=== PATIENT | female | born 1950 | race Caucasian/White ===

== ENCOUNTER 2020-12-28 13:15 | Inpatient (IN) | payer BC, MEDICARE ==
[~2020-12-28] VITALS: Ht 162.6 cm; Wt 102.1 kg
[~2020-12-28 13:15] MED LIST: BIOTIN PO; CYMBALTA PO; DIOVAN HCT 1601 EACH PO; DIOVAN HCT 3201 EAC1 PO; IRON PO; LOVENOX40 MG/0.4 SC; LYRICA PO; MULTIVITAMINS1 EAC7 PO; NORCO 10-325 T1 EACH PO; NORCO 7.5-3251 EACH PO; OSCAL PO; VITAMIN B12 PO; VITAMIN D3 PO
[2020-12-28 13:58] LABS: BASOPHILS # (AUTO) 0.1 (0.0-0.1); BASOPHILS % 0.5 % (0.0-1.0); HEMATOCRIT 42.5 % (34.2-44.1); HEMOGLOBIN 13.7 g/dL (12.0-16.0); LYMPHOCYTES # (AUTO) 1.1 (1.0-3.2); LYMPHOCYTES % 10.7 % (18.0-39.1); MEAN CORPUSCULAR HEMOGLOBIN 26.7 pg (28-32); MEAN CORPUSCULAR HGB CONC 32.2 g/dL (31-35); MEAN CORPUSCULAR VOLUME 82.7 fL (81-99); MONOCYTES # (AUTO) 0.6 (0.2-0.8); NEUTROPHILS # (AUTO) 8.2 (2.1-6.9); NEUTROPHILS % 78.3 % (38.7-80.0); PLATELET COUNT 319 x10e3/uL (140-360); RED BLOOD COUNT 5.14 x10e6/uL (3.6-5.1); RED CELL DISTRIBUTION WIDTH 13.9 % (11.7-14.4)
[2020-12-28] MEDS ORDERED: REMDESIVIR 200MG 200 MG IV ONE (14:00)
[2020-12-28] MEDS: CEFTRIAXONE 1 GM in SODIUM CHLORIDE 0.9% 50ML 50 ML IV SCH (14:08)
[2020-12-28] MEDS: DEXAMETHASONE SOD PHOS 10 MG/1 ML VIAL IV SCH (14:08)
[2020-12-28 14:21] LABS: ALBUMIN 3.1 g/dL (3.5-5.0); ALBUMIN/GLOBULIN RATIO 0.7 (0.8-2.0); ANION GAP 22.2 mmol/L (8-16); CALCIUM 9.5 mg/dL (8.4-10.2); CREATININE, SERUM 2.03 mg/dL (0.57-1.11); POTASSIUM 3.2 mmol/L (3.5-5.1)
[2020-12-28] MEDS: REMDESIVIR 200MG 200 MG IV ONE ×2 (16:00→19:17)
[2020-12-28] MEDS ORDERED: LACTATED RINGER'S 1,000 ML INJ ONE (16:00)
[2020-12-28] MEDS: ASCORBIC ACID 500 MG TAB PO SCH (16:39)
[2020-12-28] MEDS ORDERED: SODIUM CHLORIDE 0.9% 100 ML ONE ×2 (18:44→18:50)
[2020-12-28] MEDS: ENOXAPARIN 30 MG/0.3 ML SYR SC SCH (19:22)
[2020-12-28] MEDS ORDERED: ZOLPIDEM TARTRATE 5 MG TAB PO PRN (21:00)
[2020-12-28 21:46] LABS: CREATINE KINASE MB 1.1 ng/mL (0-5.0)
[2020-12-29 06:03] LABS: BASOPHILS % 0.2 % (0.0-1.0); HEMATOCRIT 35.9 % (34.2-44.1); HEMOGLOBIN 11.5 g/dL (12.0-16.0); LYMPHOCYTES # (AUTO) 0.7 (1.0-3.2); LYMPHOCYTES % 11.7 % (18.0-39.1); MEAN CORPUSCULAR HEMOGLOBIN 26.6 pg (28-32); MEAN CORPUSCULAR VOLUME 83.1 fL (81-99); MONOCYTES # (AUTO) 0.4 (0.2-0.8); MONOCYTES % 6.5 % (4.4-11.3); NEUTROPHILS # (AUTO) 4.6 (2.1-6.9); NEUTROPHILS % 78.5 % (38.7-80.0); PLATELET COUNT 243 x10e3/uL (140-360); RED BLOOD COUNT 4.32 x10e6/uL (3.6-5.1); RED CELL DISTRIBUTION WIDTH 13.7 % (11.7-14.4)
[2020-12-29 06:26] LABS: CREATINE KINASE MB 1.7 ng/mL (0-5.0)
[2020-12-29 06:51] LABS: ALBUMIN 2.5 g/dL (3.5-5.0); ALBUMIN/GLOBULIN RATIO 0.6 (0.8-2.0); ANION GAP 18.9 mmol/L (8-16); CREATININE, SERUM 2.17 mg/dL (0.57-1.11); POTASSIUM 3.9 mmol/L (3.5-5.1)
[2020-12-29 08:16] LABS: BAND NEUTROPHILS % (MANUAL) 3 %; LYMPHOCYTES % (MANUAL) 9 % (19-48); MONOCYTES % (MANUAL) 3 % (3.4-9.0); NEUTROPHILS % (MANUAL) 85 % (40-74)
[2020-12-29] MEDS: ZINC SULFATE 220 MG CAP PO SCH (09:00)
[2020-12-29] MEDS ORDERED: LACTATED RINGER'S 1,000 ML INJ ONE (13:00)
[2020-12-29 13:10] LABS: HEMATOCRIT 38.7 % (34.2-44.1); HEMOGLOBIN 12.7 g/dL (12.0-16.0)
[2020-12-29 13:22] LABS: INR 0.99; PARTIAL THROMBOPLASTIN TIME 25.8 seconds (23.8-35.5); PROTHROMBIN TIME 13.3 seconds (11.9-14.5)
[2020-12-29] MEDS ORDERED: REMDESIVIR 100MG 100 MG IV SCH (14:00)
[2020-12-29] MEDS: ASCORBIC ACID 500 MG TAB PO SCH ×2 (17:00→18:29)
[2020-12-29] MEDS ORDERED: LACTATED RINGER'S 1,000 ML ONE (18:22)
[2020-12-29] MEDS: DEXAMETHASONE SOD PHOS 10 MG/1 ML VIAL IV SCH (18:28)
[2020-12-29] MEDS: CEFTRIAXONE 1 GM in SODIUM CHLORIDE 0.9% 50ML 50 ML IV SCH (18:29)
[2020-12-29 22:38] LABS: BACTERIA,URINE MANY /HPF; CLARITY,URINE CLEAR (CLEAR); COLOR,URINE YELLOW (YELLOW); EPITHELIAL CELLS,URINE FEW /LPF; KETONES,URINE NEGATIVE (NEGATIVE); LEUKOCYTE ESTERASE ,URINE NEGATIVE (NEGATIVE); NITRITE,URINE NEGATIVE (NEGATIVE); PROTEIN,URINE DIPSTICK NEGATIVE (NEGATIVE); TRANSITIONAL EPI CELLS,URINE FEW; URINE UROBILINOGEN 0.2 mg/dL (0.2 - 1)
[2020-12-30 07:12] LABS: ANION GAP 18.7 mmol/L (8-16); CALCIUM 9.6 mg/dL (8.4-10.2); CREATININE, SERUM 1.02 mg/dL (0.57-1.11); POTASSIUM 3.7 mmol/L (3.5-5.1)
[2020-12-30] MEDS ORDERED: REMDESIVIR 100MG 100 MG IV SCH (08:00)
[2020-12-30] MEDS: CEFTRIAXONE 1 GM in SODIUM CHLORIDE 0.9% 50ML 50 ML IV SCH (08:40)
[2020-12-30] MEDS: DEXAMETHASONE SOD PHOS 10 MG/1 ML VIAL IV SCH (08:41)
[2020-12-30] MEDS: ASCORBIC ACID 500 MG TAB PO SCH ×2 (08:50→15:43)
[2020-12-30] MEDS: CHOLECALCIFEROL 1,000 UNIT TAB PO SCH (08:50)
[2020-12-30] MEDS: ZINC SULFATE 220 MG CAP PO SCH (08:51)
[2020-12-30] MEDS: ONDANSETRON HCL INJ 2MG/ML 2ML 2 MG/ML VIAL IV PRN (09:34)
[2020-12-30] MEDS: BARICITINIB 2 MG TABLET PO SCH (15:43)
[2020-12-31 08:06] LABS: BASOPHILS % 0.3 % (0.0-1.0); HEMOGLOBIN 12.8 g/dL (12.0-16.0); LYMPHOCYTES # (AUTO) 1.1 (1.0-3.2); LYMPHOCYTES % 8.7 % (18.0-39.1); MEAN CORPUSCULAR HEMOGLOBIN 26.6 pg (28-32); MEAN CORPUSCULAR VOLUME 83.2 fL (81-99); MONOCYTES # (AUTO) 0.7 (0.2-0.8); MONOCYTES % 5.4 % (4.4-11.3); NEUTROPHILS # (AUTO) 10.2 (2.1-6.9); NEUTROPHILS % 82.8 % (38.7-80.0); PLATELET COUNT 197 x10e3/uL (140-360); RED BLOOD COUNT 4.81 x10e6/uL (3.6-5.1); RED CELL DISTRIBUTION WIDTH 13.3 % (11.7-14.4)
[2020-12-31 08:44] LABS: ALBUMIN 3.2 g/dL (3.5-5.0); ANION GAP 15.4 mmol/L (8-16); CALCIUM 9.4 mg/dL (8.4-10.2); CREATININE, SERUM 0.98 mg/dL (0.57-1.11); POTASSIUM 3.4 mmol/L (3.5-5.1)
[2020-12-31] MEDS: BARICITINIB 2 MG TABLET PO SCH (09:36)
[2020-12-31] MEDS: DEXAMETHASONE SOD PHOS 10 MG/1 ML VIAL IV SCH (09:36)
[2020-12-31] MEDS: CEFTRIAXONE 1 GM in SODIUM CHLORIDE 0.9% 50ML 50 ML IV SCH (09:36)
[2020-12-31] MEDS: CHOLECALCIFEROL 1,000 UNIT TAB PO SCH (09:37)
[2020-12-31] MEDS: ZINC SULFATE 220 MG CAP PO SCH (09:37)
[2020-12-31] MEDS: ASCORBIC ACID 500 MG TAB PO SCH ×2 (09:37→16:56)
[2020-12-31] MEDS: REMDESIVIR 100MG 100 MG IV SCH (16:17)
[2020-12-31] MEDS: ENOXAPARIN 30 MG/0.3 ML SYR SC SCH (16:56)
[2021-01-01 08:36] LABS: BASOPHILS # (AUTO) 0.1 (0.0-0.1); BASOPHILS % 0.4 % (0.0-1.0); EOSINOPHILS % 0.1 % (0.0-6.0); HEMATOCRIT 39.2 % (34.2-44.1); HEMOGLOBIN 12.5 g/dL (12.0-16.0); LYMPHOCYTES # (AUTO) 1.2 (1.0-3.2); LYMPHOCYTES % 7.2 % (18.0-39.1); MEAN CORPUSCULAR HEMOGLOBIN 27.1 pg (28-32); MEAN CORPUSCULAR HGB CONC 31.9 g/dL (31-35); MONOCYTES # (AUTO) 0.7 (0.2-0.8); MONOCYTES % 4.2 % (4.4-11.3); NEUTROPHILS # (AUTO) 14.3 (2.1-6.9); NEUTROPHILS % 86.1 % (38.7-80.0); PLATELET COUNT 144 x10e3/uL (140-360); RED BLOOD COUNT 4.61 x10e6/uL (3.6-5.1); RED CELL DISTRIBUTION WIDTH 13.6 % (11.7-14.4)
[2021-01-01 09:06] LABS: ALBUMIN 3.1 g/dL (3.5-5.0); ALBUMIN/GLOBULIN RATIO 1.1 (0.8-2.0); ANION GAP 14.9 mmol/L (8-16); CALCIUM 9.1 mg/dL (8.4-10.2); CREATININE, SERUM 0.96 mg/dL (0.57-1.11); POTASSIUM 3.9 mmol/L (3.5-5.1)
[2021-01-01] MEDS: BARICITINIB 2 MG TABLET PO SCH (09:14)
[2021-01-01] MEDS: ZINC SULFATE 220 MG CAP PO SCH (09:14)
[2021-01-01] MEDS: ONDANSETRON HCL INJ 2MG/ML 2ML 2 MG/ML VIAL IV PRN (09:14)
[2021-01-01] MEDS: DEXAMETHASONE SOD PHOS 10 MG/1 ML VIAL IV SCH (09:14)
[2021-01-01] MEDS: ASCORBIC ACID 500 MG TAB PO SCH ×2 (09:14→17:51)
[2021-01-01] MEDS: CEFTRIAXONE 1 GM in SODIUM CHLORIDE 0.9% 50ML 50 ML IV SCH (09:14)
[2021-01-01] MEDS: CHOLECALCIFEROL 1,000 UNIT TAB PO SCH (09:14)
[2021-01-01] MEDS: REMDESIVIR 100MG 100 MG IV SCH ×2 (15:10→15:14)
[2021-01-01] MEDS ORDERED: ENOXAPARIN SOD INJ 40 MG/0.4 ML SYR SC SCH (17:00)
[2021-01-01] MEDS: ENOXAPARIN SOD INJ 40 MG/0.4 ML SYR SC SCH (17:51)
[2021-01-02] MEDS: ENOXAPARIN SOD INJ 40 MG/0.4 ML SYR SC SCH ×2 (07:26→17:21)
[2021-01-02 08:35] LABS: BASOPHILS % 0.2 % (0.0-1.0); HEMATOCRIT 40.2 % (34.2-44.1); HEMOGLOBIN 12.8 g/dL (12.0-16.0); LYMPHOCYTES % 4.8 % (18.0-39.1); MEAN CORPUSCULAR HEMOGLOBIN 26.8 pg (28-32); MEAN CORPUSCULAR HGB CONC 31.8 g/dL (31-35); MEAN CORPUSCULAR VOLUME 84.1 fL (81-99); MONOCYTES # (AUTO) 0.7 (0.2-0.8); MONOCYTES % 3.6 % (4.4-11.3); NEUTROPHILS # (AUTO) 18.2 (2.1-6.9); NEUTROPHILS % 88.8 % (38.7-80.0); PLATELET COUNT 131 x10e3/uL (140-360); RED BLOOD COUNT 4.78 x10e6/uL (3.6-5.1); RED CELL DISTRIBUTION WIDTH 13.5 % (11.7-14.4)
[2021-01-02] MEDS: CEFTRIAXONE 1 GM in SODIUM CHLORIDE 0.9% 50ML 50 ML IV SCH (09:03)
[2021-01-02] MEDS: BARICITINIB 2 MG TABLET PO SCH (09:03)
[2021-01-02] MEDS: ZINC SULFATE 220 MG CAP PO SCH (09:03)
[2021-01-02] MEDS: ASCORBIC ACID 500 MG TAB PO SCH ×2 (09:03→17:21)
[2021-01-02] MEDS: DEXAMETHASONE SOD PHOS 10 MG/1 ML VIAL IV SCH (09:03)
[2021-01-02] MEDS: CHOLECALCIFEROL 1,000 UNIT TAB PO SCH (09:04)
[2021-01-02 09:12] LABS: ALBUMIN 3.1 g/dL (3.5-5.0); ALBUMIN/GLOBULIN RATIO 0.9 (0.8-2.0); ANION GAP 14.7 mmol/L (8-16); CALCIUM 9.3 mg/dL (8.4-10.2); CREATININE, SERUM 0.86 mg/dL (0.57-1.11); POTASSIUM 3.7 mmol/L (3.5-5.1)
[2021-01-02] MEDS: REMDESIVIR 100MG 100 MG IV SCH (14:05)
[2021-01-02] MEDS ORDERED: ALBUTEROL SULF 0.083% NEB SOLN 3 ML NEB NEB PRN (17:00)
[2021-01-02 18:30] VITALS: BP 128/75
[2021-01-02 18:38] VITALS: BP 128/75
[2021-01-02] MEDS ORDERED: ALBUTEROL SULFATE HFA 8GM INHALATION AEROSOL INH PRN (19:45)
[2021-01-02 21:13] VITALS: BP 141/86
[2021-01-02 21:16] VITALS: BP 141/86
[2021-01-02 22:08] VITALS: BP 142/89
[2021-01-02 23:30] VITALS: BP 147/93
[2021-01-03] VITALS (12 sets, daily range): BP systolic 118–147; BP diastolic 67–84
[2021-01-03 05:21] LABS: BASOPHILS % 0.2 % (0.0-1.0); HEMATOCRIT 35.7 % (34.2-44.1); HEMOGLOBIN 11.5 g/dL (12.0-16.0); LYMPHOCYTES # (AUTO) 0.8 (1.0-3.2); MEAN CORPUSCULAR HEMOGLOBIN 26.4 pg (28-32); MEAN CORPUSCULAR HGB CONC 32.2 g/dL (31-35); MEAN CORPUSCULAR VOLUME 82.1 fL (81-99); MONOCYTES # (AUTO) 0.5 (0.2-0.8); MONOCYTES % 2.4 % (4.4-11.3); NEUTROPHILS # (AUTO) 17.3 (2.1-6.9); NEUTROPHILS % 90.5 % (38.7-80.0); PLATELET COUNT 146 x10e3/uL (140-360); RED BLOOD COUNT 4.35 x10e6/uL (3.6-5.1); RED CELL DISTRIBUTION WIDTH 13.2 % (11.7-14.4)
[2021-01-03 05:46] LABS: ALBUMIN 2.8 g/dL (3.5-5.0); ALBUMIN/GLOBULIN RATIO 0.9 (0.8-2.0); ANION GAP 16.8 mmol/L (8-16); CREATININE, SERUM 0.82 mg/dL (0.57-1.11); POTASSIUM 3.8 mmol/L (3.5-5.1)
[2021-01-03] MEDS: ENOXAPARIN SOD INJ 40 MG/0.4 ML SYR SC SCH ×2 (06:24→17:59)
[2021-01-03] MEDS: BARICITINIB 2 MG TABLET PO SCH (09:35)
[2021-01-03] MEDS: DEXAMETHASONE SOD PHOS 10 MG/1 ML VIAL IV SCH (09:35)
[2021-01-03] MEDS: CEFTRIAXONE 1 GM in SODIUM CHLORIDE 0.9% 50ML 50 ML IV SCH (09:35)
[2021-01-03] MEDS: ASCORBIC ACID 500 MG TAB PO SCH ×2 (09:45→17:59)
[2021-01-03] MEDS: ZINC SULFATE 220 MG CAP PO SCH (09:45)
[2021-01-03] MEDS: CHOLECALCIFEROL 1,000 UNIT TAB PO SCH (09:45)
[2021-01-04] VITALS (8 sets, daily range): BP systolic 127–146; BP diastolic 72–89
[2021-01-04] MEDS: ENOXAPARIN SOD INJ 40 MG/0.4 ML SYR SC SCH ×2 (06:16→17:18)
[2021-01-04 06:22] LABS: BASOPHILS % 0.1 % (0.0-1.0); HEMATOCRIT 36.3 % (34.2-44.1); HEMOGLOBIN 11.9 g/dL (12.0-16.0); LYMPHOCYTES # (AUTO) 0.7 (1.0-3.2); LYMPHOCYTES % 3.6 % (18.0-39.1); MEAN CORPUSCULAR HEMOGLOBIN 26.9 pg (28-32); MEAN CORPUSCULAR HGB CONC 32.8 g/dL (31-35); MEAN CORPUSCULAR VOLUME 81.9 fL (81-99); MONOCYTES # (AUTO) 0.6 (0.2-0.8); NEUTROPHILS % 89.7 % (38.7-80.0); PLATELET COUNT 174 x10e3/uL (140-360); RED BLOOD COUNT 4.43 x10e6/uL (3.6-5.1); RED CELL DISTRIBUTION WIDTH 13.2 % (11.7-14.4)
[2021-01-04 06:58] LABS: ALBUMIN 2.8 g/dL (3.5-5.0); ALBUMIN/GLOBULIN RATIO 0.9 (0.8-2.0); ANION GAP 13.9 mmol/L (8-16); CALCIUM 9.2 mg/dL (8.4-10.2); CREATININE, SERUM 0.82 mg/dL (0.57-1.11); POTASSIUM 3.9 mmol/L (3.5-5.1)
[2021-01-04] MEDS ORDERED: LACTATED RINGER'S 500 ML INJ ONE (09:30)
[2021-01-04] MEDS: CHOLECALCIFEROL 1,000 UNIT TAB PO SCH (09:39)
[2021-01-04] MEDS: ASCORBIC ACID 500 MG TAB PO SCH ×2 (09:39→17:18)
[2021-01-04] MEDS: ZINC SULFATE 220 MG CAP PO SCH (09:39)
[2021-01-04] MEDS: BARICITINIB 2 MG TABLET PO SCH (09:39)
[2021-01-04] MEDS: DEXAMETHASONE SOD PHOS 10 MG/1 ML VIAL IV SCH (11:37)
[2021-01-05] VITALS (9 sets, daily range): BP systolic 131–156; BP diastolic 57–88
[2021-01-05] MEDS: ENOXAPARIN SOD INJ 40 MG/0.4 ML SYR SC SCH ×2 (05:41→17:22)
[2021-01-05 05:55] LABS: BASOPHILS % 0.2 % (0.0-1.0); EOSINOPHILS % 0.1 % (0.0-6.0); HEMATOCRIT 36.1 % (34.2-44.1); HEMOGLOBIN 11.6 g/dL (12.0-16.0); LYMPHOCYTES # (AUTO) 0.7 (1.0-3.2); LYMPHOCYTES % 3.6 % (18.0-39.1); MEAN CORPUSCULAR HEMOGLOBIN 26.8 pg (28-32); MEAN CORPUSCULAR HGB CONC 32.1 g/dL (31-35); MEAN CORPUSCULAR VOLUME 83.4 fL (81-99); MONOCYTES # (AUTO) 0.6 (0.2-0.8); MONOCYTES % 3.3 % (4.4-11.3); NEUTROPHILS # (AUTO) 16.3 (2.1-6.9); NEUTROPHILS % 90.5 % (38.7-80.0); PLATELET COUNT 204 x10e3/uL (140-360); RED BLOOD COUNT 4.33 x10e6/uL (3.6-5.1); RED CELL DISTRIBUTION WIDTH 13.4 % (11.7-14.4)
[2021-01-05 06:17] LABS: ALBUMIN 2.7 g/dL (3.5-5.0); ALBUMIN/GLOBULIN RATIO 0.9 (0.8-2.0); ANION GAP 15.2 mmol/L (8-16); CREATININE, SERUM 0.77 mg/dL (0.57-1.11); POTASSIUM 4.2 mmol/L (3.5-5.1)
[2021-01-05] MEDS: CHOLECALCIFEROL 1,000 UNIT TAB PO SCH (08:23)
[2021-01-05] MEDS: BARICITINIB 2 MG TABLET PO SCH (08:23)
[2021-01-05] MEDS: ASCORBIC ACID 500 MG TAB PO SCH ×2 (08:23→16:15)
[2021-01-05] MEDS: ZINC SULFATE 220 MG CAP PO SCH (08:23)
[2021-01-05] MEDS: DEXAMETHASONE SOD PHOS 10 MG/1 ML VIAL IV SCH (08:23)
[2021-01-05] MEDS: ACETAMINOPHEN 325 MG TAB PO PRN (17:27)
[2021-01-06] VITALS (8 sets, daily range): BP systolic 101–165; BP diastolic 80–100
[2021-01-06] MEDS: ENOXAPARIN SOD INJ 40 MG/0.4 ML SYR SC SCH ×2 (06:08→17:43)
[2021-01-06] MEDS: DEXAMETHASONE SOD PHOS 10 MG/1 ML VIAL IV SCH (09:14)
[2021-01-06] MEDS: ASCORBIC ACID 500 MG TAB PO SCH ×2 (09:14→17:00)
[2021-01-06] MEDS: BARICITINIB 2 MG TABLET PO SCH (09:14)
[2021-01-06] MEDS: CHOLECALCIFEROL 1,000 UNIT TAB PO SCH (09:14)
[2021-01-06] MEDS: ZINC SULFATE 220 MG CAP PO SCH (09:14)
[2021-01-06] MEDS ORDERED: DEXMEDETOMIDINE 400MCG/NS100ML 100 ML IV PRN (11:30)
[2021-01-06] MEDS ORDERED: HYDRALAZINE HCL 20 MG/ML VIAL IV PRN (11:30)
[2021-01-07] VITALS (7 sets, daily range): BP systolic 105–152; BP diastolic 63–85
[2021-01-07] MEDS ORDERED: ZOLPIDEM TARTRATE 5 MG TAB PO PRN (00:30)
[2021-01-07] MEDS: ENOXAPARIN SOD INJ 40 MG/0.4 ML SYR SC SCH ×2 (05:38→17:50)
[2021-01-07] MEDS: CHOLECALCIFEROL 1,000 UNIT TAB PO SCH (09:00)
[2021-01-07] MEDS: ASCORBIC ACID 500 MG TAB PO SCH ×2 (09:00→17:00)
[2021-01-07] MEDS: ZINC SULFATE 220 MG CAP PO SCH (09:00)
[2021-01-07] MEDS: BARICITINIB 2 MG TABLET PO SCH (09:00)
[2021-01-07] MEDS ORDERED: WATER STERILE 10 ML VIAL ONE (12:12)
[2021-01-07] MEDS ORDERED: SUCCINYLCHOLINE CHLORIDE 20 MG/ML 10ML VIAL ONE (12:12)
[2021-01-07] MEDS ORDERED: VECURONIUM BROMIDE FOR INJ 20 MG VIAL ONE (12:12)
[2021-01-07] MEDS ORDERED: MIDAZOLAM HCL 2 MG/2 ML VIAL ONE (12:12)
[2021-01-07] MEDS ORDERED: ETOMIDATE 2 MG/ML 10 ML INJ IV ONE (12:12)
[2021-01-07 17:07] LABS: EOSINOPHILS # (AUTO) 0.1 (0.0-0.4); EOSINOPHILS % 0.4 % (0.0-6.0); HEMATOCRIT 43.6 % (34.2-44.1); HEMOGLOBIN 13.9 g/dL (12.0-16.0); LYMPHOCYTES # (AUTO) 1.1 (1.0-3.2); LYMPHOCYTES % 3.6 % (18.0-39.1); MEAN CORPUSCULAR HEMOGLOBIN 26.9 pg (28-32); MEAN CORPUSCULAR HGB CONC 31.9 g/dL (31-35); MEAN CORPUSCULAR VOLUME 84.5 fL (81-99); MONOCYTES # (AUTO) 1.5 (0.2-0.8); MONOCYTES % 4.9 % (4.4-11.3); NEUTROPHILS # (AUTO) 28.2 (2.1-6.9); NEUTROPHILS % 89.4 % (38.7-80.0); PLATELET COUNT 269 x10e3/uL (140-360); RED BLOOD COUNT 5.16 x10e6/uL (3.6-5.1); RED CELL DISTRIBUTION WIDTH 13.7 % (11.7-14.4)
[2021-01-07] MEDS ORDERED: ROCURONIUM BROMIDE 1,250 MG in SODIUM CHLORIDE 0.9% 250ML 125 ML IV SCH (17:15)
[2021-01-07 17:26] LABS: ALBUMIN 3.2 g/dL (3.5-5.0); ALBUMIN/GLOBULIN RATIO 0.8 (0.8-2.0); ANION GAP 16.9 mmol/L (8-16); CALCIUM 9.4 mg/dL (8.4-10.2); CREATININE, SERUM 0.71 mg/dL (0.57-1.11); POTASSIUM 4.9 mmol/L (3.5-5.1)
[2021-01-07] MEDS: FENTANYL 2000MCG/NS 250 250 ML IV SCH (17:54)
[2021-01-07] MEDS: MIDAZOLAM HCL 5MG/ML 10ML VIAL 100 ML IV PRN (17:55)
[2021-01-07] MEDS: ROCURONIUM 1250MG/NS 250 250 ML IV SCH (17:55)
[2021-01-07] MEDS: Vancomycin IV 1 GM in SODIUM CHLORIDE 0.9% 250ML 250 ML IV SCH (19:00)
[2021-01-07] MEDS: NOREPINEPHRINE 8 MG/D5W 250 ML 250 ML IV SCH (20:37)
[2021-01-07 21:12] LABS: ABG HCO3 30 mmol/L (22-26); ABG PCO2 62 mmHg (35-45); ABG PH 7.29 (7.35-7.45); ABG PO2 173 mmHg (80-105)
[2021-01-07 21:13] LABS: ABG TCO2 32
[2021-01-07] MEDS: MEROPENEM 1 GM in SODIUM CHLORIDE 0.9% 100 ML IV SCH ×2 (23:23→23:25)
[2021-01-08] VITALS (23 sets, daily range): BP systolic 65–146; BP diastolic 26–90
[2021-01-08] MEDS: FENTANYL 2000MCG/NS 250 250 ML IV SCH ×3 (00:15→16:00)
[2021-01-08] MEDS: MEROPENEM 1 GM in SODIUM CHLORIDE 0.9% 100 ML IV SCH ×2 (05:30→14:16)
[2021-01-08] MEDS: ENOXAPARIN SOD INJ 40 MG/0.4 ML SYR SC SCH (05:38)
[2021-01-08] MEDS: Vancomycin IV 1 GM in SODIUM CHLORIDE 0.9% 250ML 250 ML IV SCH (05:47)
[2021-01-08 05:51] LABS: BASOPHILS # (AUTO) 0.1 (0.0-0.1); BASOPHILS % 0.3 % (0.0-1.0); EOSINOPHILS # (AUTO) 0.2 (0.0-0.4); EOSINOPHILS % 0.6 % (0.0-6.0); HEMATOCRIT 40.8 % (34.2-44.1); HEMOGLOBIN 12.7 g/dL (12.0-16.0); LYMPHOCYTES # (AUTO) 1.3 (1.0-3.2); LYMPHOCYTES % 3.1 % (18.0-39.1); MEAN CORPUSCULAR HEMOGLOBIN 26.9 pg (28-32); MEAN CORPUSCULAR HGB CONC 31.1 g/dL (31-35); MEAN CORPUSCULAR VOLUME 86.4 fL (81-99); MONOCYTES % 4.7 % (4.4-11.3); NEUTROPHILS % 88.1 % (38.7-80.0); PLATELET COUNT 396 x10e3/uL (140-360); RED BLOOD COUNT 4.72 x10e6/uL (3.6-5.1); RED CELL DISTRIBUTION WIDTH 13.9 % (11.7-14.4)
[2021-01-08 06:14] LABS: ALBUMIN 2.9 g/dL (3.5-5.0); ALBUMIN/GLOBULIN RATIO 0.8 (0.8-2.0); ANION GAP 19.2 mmol/L (8-16); CALCIUM 9.2 mg/dL (8.4-10.2); CREATININE, SERUM 1.73 mg/dL (0.57-1.11); POTASSIUM 5.2 mmol/L (3.5-5.1)
[2021-01-08] MEDS: ASCORBIC ACID 500 MG TAB PO SCH ×2 (09:37→16:51)
[2021-01-08] MEDS: BARICITINIB 2 MG TABLET PO SCH (09:37)
[2021-01-08] MEDS: ZINC SULFATE 220 MG CAP PO SCH (09:37)
[2021-01-08] MEDS: CHOLECALCIFEROL 1,000 UNIT TAB PO SCH (09:37)
[2021-01-08] MEDS: NOREPINEPHRINE 8 MG/D5W 250 ML 250 ML IV SCH ×2 (09:38→14:22)
[2021-01-08] MEDS: MIDAZOLAM HCL 5MG/ML 10ML VIAL 100 ML IV PRN ×3 (09:54→22:00)
[2021-01-08 10:17] LABS: ABG HCO3 22 mmol/L (22-26); ABG PCO2 43 mmHg (35-45); ABG PH 7.31 (7.35-7.45); ABG PO2 94 mmHg (80-105); ABG TCO2 23
[2021-01-08] MEDS ORDERED: SODIUM CHLORIDE 0.9% 1000ML 500 ML IV ONE (11:45)
[2021-01-08] MEDS: VANCOMYCIN 250MG/5ML ORAL SOLN PO SCH ×2 (12:59→17:03)
[2021-01-08 13:47] LABS: LYMPHOCYTES % (MANUAL) 5 % (19-48); MONOCYTES % (MANUAL) 3 % (3.4-9.0); NEUTROPHILS % (MANUAL) 92 % (40-74); PLATELET ESTIMATE SLIGHTLY INCREASED; PLATELET MORPHOLOGY COMMENT NORMAL; RBC MORPHOLOGY COMMENT NORMAL
[2021-01-08] MEDS: SODIUM CHLORIDE 0.9% 1000ML 1,000 ML IV SCH ×2 (15:29→23:00)
[2021-01-08] MEDS ORDERED: SOD POLYSTYRENE SULFONATE SUSP 15 GM/60 ML BTL PO ONE (15:35)
[2021-01-08] MEDS: ROCURONIUM 1250MG/NS 250 250 ML IV SCH ×2 (16:52→21:44)
[2021-01-08] MEDS ORDERED: FUROSEMIDE INJ 10 MG/ML 4 ML VIAL IV ONE (18:45)
[2021-01-09] VITALS (22 sets, daily range): BP systolic 100–151; BP diastolic 61–87
[2021-01-09] MEDS: MIDAZOLAM HCL 5MG/ML 10ML VIAL 100 ML IV PRN ×4 (03:00→17:57)
[2021-01-09] MEDS: FENTANYL 2000MCG/NS 250 250 ML IV SCH ×3 (04:22→17:57)
[2021-01-09] MEDS: VANCOMYCIN 250MG/5ML ORAL SOLN PO SCH ×4 (06:19→17:14)
[2021-01-09 06:49] LABS: BASOPHILS # (AUTO) 0.1 (0.0-0.1); BASOPHILS % 0.2 % (0.0-1.0); EOSINOPHILS # (AUTO) 0.4 (0.0-0.4); EOSINOPHILS % 1.9 % (0.0-6.0); HEMATOCRIT 32.1 % (34.2-44.1); HEMOGLOBIN 10.8 g/dL (12.0-16.0); LYMPHOCYTES # (AUTO) 1.6 (1.0-3.2); LYMPHOCYTES % 7.8 % (18.0-39.1); MEAN CORPUSCULAR HEMOGLOBIN 27.3 pg (28-32); MEAN CORPUSCULAR HGB CONC 33.6 g/dL (31-35); MEAN CORPUSCULAR VOLUME 81.1 fL (81-99); MONOCYTES % 4.6 % (4.4-11.3); NEUTROPHILS % 82.7 % (38.7-80.0); PLATELET COUNT 323 x10e3/uL (140-360); RED BLOOD COUNT 3.96 x10e6/uL (3.6-5.1); RED CELL DISTRIBUTION WIDTH 14.1 % (11.7-14.4)
[2021-01-09 07:30] LABS: ALBUMIN 1.8 g/dL (3.5-5.0); ALBUMIN/GLOBULIN RATIO 0.5 (0.8-2.0); ANION GAP 18.3 mmol/L (8-16); CALCIUM 8.8 mg/dL (8.4-10.2); CREATININE, SERUM 2.91 mg/dL (0.57-1.11); POTASSIUM 3.3 mmol/L (3.5-5.1)
[2021-01-09] MEDS: CHOLECALCIFEROL 1,000 UNIT TAB PO SCH (09:09)
[2021-01-09] MEDS: ASCORBIC ACID 500 MG TAB PO SCH ×2 (09:09→17:14)
[2021-01-09] MEDS: ZINC SULFATE 220 MG CAP PO SCH (09:09)
[2021-01-09] MEDS: BARICITINIB 2 MG TABLET PO SCH (09:09)
[2021-01-09] MEDS: ENOXAPARIN SOD INJ 40 MG/0.4 ML SYR SC SCH (09:09)
[2021-01-09] MEDS: ROCURONIUM 1250MG/NS 250 250 ML IV SCH (09:11)
[2021-01-09 09:18] LABS: ABG HCO3 21 mmol/L (22-26); ABG PCO2 29 mmHg (35-45); ABG PH 7.47 (7.35-7.45); ABG PO2 142 mmHg (80-105); ABG TCO2 22
[2021-01-09] MEDS: NOREPINEPHRINE 8 MG/D5W 250 ML 250 ML IV SCH (11:21)
[2021-01-09] MEDS ORDERED: KCL 20 MEQ PACKET/ ORAL SOLN NG ONE (11:30)
[2021-01-09] MEDS: MEROPENEM 1 GM in SODIUM CHLORIDE 0.9% 100 ML IV SCH (14:15)
[2021-01-09] MEDS: FUROSEMIDE INJ 100 MG in SODIUM CHLORIDE 0.9% 100 ML 90 ML IV SCH (17:14)
[2021-01-10] VITALS (24 sets, daily range): BP systolic 88–128; BP diastolic 49–80
[2021-01-10] MEDS: VANCOMYCIN 250MG/5ML ORAL SOLN PO SCH ×4 (00:35→17:10)
[2021-01-10 06:58] LABS: BASOPHILS % 0.3 % (0.0-1.0); EOSINOPHILS # (AUTO) 0.4 (0.0-0.4); EOSINOPHILS % 2.5 % (0.0-6.0); HEMATOCRIT 27.5 % (34.2-44.1); HEMOGLOBIN 9.2 g/dL (12.0-16.0); LYMPHOCYTES # (AUTO) 1.5 (1.0-3.2); LYMPHOCYTES % 9.9 % (18.0-39.1); MEAN CORPUSCULAR HEMOGLOBIN 27.3 pg (28-32); MEAN CORPUSCULAR HGB CONC 33.5 g/dL (31-35); MEAN CORPUSCULAR VOLUME 81.6 fL (81-99); MONOCYTES # (AUTO) 0.7 (0.2-0.8); MONOCYTES % 4.6 % (4.4-11.3); NEUTROPHILS # (AUTO) 11.8 (2.1-6.9); NEUTROPHILS % 80.2 % (38.7-80.0); PLATELET COUNT 285 x10e3/uL (140-360); RED BLOOD COUNT 3.37 x10e6/uL (3.6-5.1); RED CELL DISTRIBUTION WIDTH 14.7 % (11.7-14.4)
[2021-01-10 07:30] LABS: ALBUMIN 1.5 g/dL (3.5-5.0); ALBUMIN/GLOBULIN RATIO 0.5 (0.8-2.0); ANION GAP 13.1 mmol/L (8-16); CALCIUM 7.7 mg/dL (8.4-10.2); CREATININE, SERUM 3.11 mg/dL (0.57-1.11); POTASSIUM 3.1 mmol/L (3.5-5.1)
[2021-01-10] MEDS ORDERED: KCL 20 MEQ PACKET/ ORAL SOLN NG SCH (09:00)
[2021-01-10 09:10] LABS: ABG HCO3 24 mmol/L (22-26); ABG PCO2 40 mmHg (35-45); ABG PH 7.38 (7.35-7.45); ABG PO2 106 mmHg (80-105); ABG TCO2 25
[2021-01-10] MEDS ORDERED: ALBUMIN 25% 12.5GM 50ML 100 ML IV ONE ×2 (09:42→21:44)
[2021-01-10] MEDS: ASCORBIC ACID 500 MG TAB PO SCH ×2 (09:45→17:10)
[2021-01-10] MEDS: ALBUMIN 25% 25GM 100ML 0.25 GM/ML BTL IV SCH ×3 (09:45→22:06)
[2021-01-10] MEDS: CHOLECALCIFEROL 1,000 UNIT TAB PO SCH (09:45)
[2021-01-10] MEDS: ENOXAPARIN SOD INJ 40 MG/0.4 ML SYR SC SCH (09:45)
[2021-01-10] MEDS: ZINC SULFATE 220 MG CAP PO SCH (09:45)
[2021-01-10] MEDS: BARICITINIB 2 MG TABLET PO SCH (09:45)
[2021-01-10] MEDS: MIDAZOLAM HCL 5MG/ML 10ML VIAL 100 ML IV PRN ×2 (11:15→14:54)
[2021-01-10] MEDS: FUROSEMIDE INJ 100 MG in SODIUM CHLORIDE 0.9% 100 ML 90 ML IV SCH (13:48)
[2021-01-10] MEDS: MEROPENEM 1 GM in SODIUM CHLORIDE 0.9% 100 ML IV SCH (13:48)
[2021-01-10] MEDS: FENTANYL 2000MCG/NS 250 250 ML IV SCH (14:53)
[2021-01-10] MEDS ORDERED: MAGNESIUM SULFATE 2GM/50ML 50 ML IV ONE (16:45)
[2021-01-10] MEDS: NOREPINEPHRINE 8 MG/D5W 250 ML 250 ML IV SCH (18:46)
[2021-01-10 21:25] LABS: MAGNESIUM 2.5 MG/DL (1.3-2.1); PHOSPHORUS 2.8 MG/DL (2.3-4.7)
[2021-01-10 21:38] LABS: ALBUMIN 2.5 g/dL (3.5-5.0); ALBUMIN/GLOBULIN RATIO 0.9 (0.8-2.0); ANION GAP 15.2 mmol/L (8-16); CALCIUM 8.7 mg/dL (8.4-10.2); CREATININE, SERUM 3.56 mg/dL (0.57-1.11); POTASSIUM 3.2 mmol/L (3.5-5.1)
[2021-01-11] VITALS (28 sets, daily range): BP systolic 89–135; BP diastolic 42–80
[2021-01-11] MEDS: POTASSIUM CHLORIDE 20MEQ/100ML 100 ML IV SCH (00:18)
[2021-01-11] MEDS: VANCOMYCIN 250MG/5ML ORAL SOLN PO SCH ×4 (00:18→17:55)
[2021-01-11 06:35] LABS: BASOPHILS % 0.3 % (0.0-1.0); EOSINOPHILS # (AUTO) 0.3 (0.0-0.4); EOSINOPHILS % 2.7 % (0.0-6.0); HEMOGLOBIN 8.6 g/dL (12.0-16.0); LYMPHOCYTES # (AUTO) 2.1 (1.0-3.2); LYMPHOCYTES % 18.1 % (18.0-39.1); MEAN CORPUSCULAR HGB CONC 33.1 g/dL (31-35); MEAN CORPUSCULAR VOLUME 81.8 fL (81-99); MONOCYTES # (AUTO) 0.7 (0.2-0.8); NEUTROPHILS # (AUTO) 8.3 (2.1-6.9); NEUTROPHILS % 70.6 % (38.7-80.0); PLATELET COUNT 271 x10e3/uL (140-360); RED BLOOD COUNT 3.18 x10e6/uL (3.6-5.1)
[2021-01-11 07:46] LABS: ALBUMIN 2.7 g/dL (3.5-5.0); ANION GAP 16.8 mmol/L (8-16); CALCIUM 8.8 mg/dL (8.4-10.2); CREATININE, SERUM 3.68 mg/dL (0.57-1.11); POTASSIUM 3.8 mmol/L (3.5-5.1)
[2021-01-11] MEDS: CHOLECALCIFEROL 1,000 UNIT TAB PO SCH (08:42)
[2021-01-11] MEDS: KCL 20 MEQ PACKET/ ORAL SOLN NG SCH (08:42)
[2021-01-11] MEDS: FUROSEMIDE INJ 100 MG in SODIUM CHLORIDE 0.9% 100 ML 90 ML IV SCH (08:42)
[2021-01-11] MEDS: ZINC SULFATE 220 MG CAP PO SCH (08:42)
[2021-01-11] MEDS: ASCORBIC ACID 500 MG TAB PO SCH ×2 (08:42→17:55)
[2021-01-11] MEDS: BARICITINIB 2 MG TABLET PO SCH (08:42)
[2021-01-11] MEDS: ENOXAPARIN SOD INJ 40 MG/0.4 ML SYR SC SCH (08:42)
[2021-01-11] MEDS: MIDAZOLAM HCL 5MG/ML 10ML VIAL 100 ML IV PRN ×4 (08:43→23:42)
[2021-01-11] MEDS ORDERED: POTASSIUM CHLORIDE 20 MEQ TAB CR PO SCH (09:00)
[2021-01-11] MEDS ORDERED: HEPARIN 25,000 UNIT 1,300 UNIT in DEXTROSE 5% 250ML 250 ML IV SCH ×2 (09:00→11:30)
[2021-01-11 09:46] LABS: ABG PCO2 40 mmHg (35-45); ABG PH 7.41 (7.35-7.45)
[2021-01-11 09:47] LABS: ABG PO2 65 mmHg (80-105)
[2021-01-11 09:48] LABS: ABG HCO3 25 mmol/L (22-26); ABG TCO2 27
[2021-01-11] MEDS: ALBUMIN 25% 25GM 100ML 0.25 GM/ML BTL IV SCH ×3 (10:10→22:02)
[2021-01-11] MEDS: FENTANYL 2000MCG/NS 250 250 ML IV SCH ×3 (13:09→20:12)
[2021-01-11] MEDS: MEROPENEM 1 GM in SODIUM CHLORIDE 0.9% 100 ML IV SCH (14:50)
[2021-01-11] MEDS: NOREPINEPHRINE 8 MG/D5W 250 ML 250 ML IV SCH (17:55)
[2021-01-11] MEDS: ACETAMINOPHEN 325 MG TAB PO PRN (20:03)
[2021-01-11] MEDS: HEPARIN 25,000 UNIT 1,300 UNIT in DEXTROSE 5% 250ML 250 ML IV SCH (22:02)
[2021-01-12] VITALS (40 sets, daily range): BP systolic 100–134; BP diastolic 44–79
[2021-01-12] MEDS: VANCOMYCIN 250MG/5ML ORAL SOLN PO SCH ×5 (00:05→23:58)
[2021-01-12] MEDS: FENTANYL 2000MCG/NS 250 250 ML IV SCH ×3 (03:17→14:46)
[2021-01-12 03:41] LABS: BASOPHILS % 0.2 % (0.0-1.0); EOSINOPHILS # (AUTO) 0.3 (0.0-0.4); EOSINOPHILS % 2.5 % (0.0-6.0); HEMATOCRIT 25.3 % (34.2-44.1); LYMPHOCYTES # (AUTO) 2.7 (1.0-3.2); LYMPHOCYTES % 23.1 % (18.0-39.1); MEAN CORPUSCULAR HEMOGLOBIN 26.7 pg (28-32); MEAN CORPUSCULAR HGB CONC 31.6 g/dL (31-35); MEAN CORPUSCULAR VOLUME 84.3 fL (81-99); MONOCYTES # (AUTO) 0.9 (0.2-0.8); MONOCYTES % 7.9 % (4.4-11.3); NEUTROPHILS # (AUTO) 7.3 (2.1-6.9); NEUTROPHILS % 62.7 % (38.7-80.0); PLATELET COUNT 250 x10e3/uL (140-360)
[2021-01-12 03:57] LABS: ALBUMIN 3.7 g/dL (3.5-5.0); ALBUMIN/GLOBULIN RATIO 1.5 (0.8-2.0); ANION GAP 18.8 mmol/L (8-16); CALCIUM 10.2 mg/dL (8.4-10.2); CREATININE, SERUM 4.62 mg/dL (0.57-1.11); POTASSIUM 4.8 mmol/L (3.5-5.1)
[2021-01-12] MEDS: HEPARIN 25,000 UNIT 1,300 UNIT in DEXTROSE 5% 250ML 250 ML IV SCH ×2 (04:27→11:32)
[2021-01-12] MEDS: MIDAZOLAM HCL 5MG/ML 10ML VIAL 100 ML IV PRN ×4 (04:50→20:47)
[2021-01-12] MEDS ORDERED: ZINC SULFATE 50 MG CAP ONE (08:17)
[2021-01-12] MEDS: KCL 20 MEQ PACKET/ ORAL SOLN NG SCH (09:00)
[2021-01-12 09:13] LABS: ABG PH 7.33 (7.35-7.45)
[2021-01-12 09:14] LABS: ABG HCO3 27 mmol/L (22-26); ABG PCO2 52 mmHg (35-45); ABG PO2 85 mmHg (80-105); ABG TCO2 29
[2021-01-12] MEDS: BARICITINIB 2 MG TABLET PO SCH (09:56)
[2021-01-12] MEDS: ASCORBIC ACID 500 MG TAB PO SCH ×2 (09:56→17:30)
[2021-01-12] MEDS: CHOLECALCIFEROL 1,000 UNIT TAB PO SCH (09:56)
[2021-01-12] MEDS: ZINC SULFATE 220 MG CAP PO SCH (09:56)
[2021-01-12] MEDS: MEROPENEM 1 GM in SODIUM CHLORIDE 0.9% 100 ML IV SCH (14:46)
[2021-01-12] MEDS: NOREPINEPHRINE 8 MG/D5W 250 ML 250 ML IV SCH (18:07)
[2021-01-12] MEDS ORDERED: HEPARIN SOD (PORCINE) 1000 UNIT/ML SDV ONE (19:05)
[2021-01-12] MEDS ORDERED: MANNITOL 25% 12.5GM/50ML 50 ML ONE (19:59)
[2021-01-13] VITALS (25 sets, daily range): BP systolic 87–119; BP diastolic 45–69
[2021-01-13] MEDS: FENTANYL 2000MCG/NS 250 250 ML IV SCH ×3 (00:18→21:19)
[2021-01-13] MEDS: MIDAZOLAM HCL 5MG/ML 10ML VIAL 100 ML IV PRN ×3 (02:05→23:30)
[2021-01-13 05:57] LABS: BASOPHILS % 0.2 % (0.0-1.0); EOSINOPHILS # (AUTO) 0.4 (0.0-0.4); HEMOGLOBIN 8.2 g/dL (12.0-16.0); LYMPHOCYTES # (AUTO) 1.6 (1.0-3.2); LYMPHOCYTES % 12.7 % (18.0-39.1); MEAN CORPUSCULAR HEMOGLOBIN 27.2 pg (28-32); MEAN CORPUSCULAR HGB CONC 31.5 g/dL (31-35); MEAN CORPUSCULAR VOLUME 86.4 fL (81-99); MONOCYTES # (AUTO) 0.8 (0.2-0.8); MONOCYTES % 6.5 % (4.4-11.3); NEUTROPHILS # (AUTO) 9.2 (2.1-6.9); NEUTROPHILS % 74.8 % (38.7-80.0); PLATELET COUNT 216 x10e3/uL (140-360); RED BLOOD COUNT 3.01 x10e6/uL (3.6-5.1)
[2021-01-13] MEDS: VANCOMYCIN 250MG/5ML ORAL SOLN PO SCH ×4 (06:03→23:57)
[2021-01-13 06:36] LABS: ALBUMIN 3.3 g/dL (3.5-5.0); ALBUMIN/GLOBULIN RATIO 1.2 (0.8-2.0); ANION GAP 16.4 mmol/L (8-16); CALCIUM 10.1 mg/dL (8.4-10.2); CREATININE, SERUM 3.37 mg/dL (0.57-1.11); POTASSIUM 4.4 mmol/L (3.5-5.1)
[2021-01-13 09:46] LABS: ABG HCO3 29 mmol/L (22-26); ABG PCO2 56 mmHg (35-45); ABG PH 7.32 (7.35-7.45); ABG PO2 104 mmHg (80-105); ABG TCO2 31
[2021-01-13] MEDS: KCL 20 MEQ PACKET/ ORAL SOLN NG SCH (10:47)
[2021-01-13] MEDS: ASCORBIC ACID 500 MG TAB PO SCH ×2 (10:48→18:18)
[2021-01-13] MEDS: ZINC SULFATE 220 MG CAP PO SCH (10:48)
[2021-01-13] MEDS: CHOLECALCIFEROL 1,000 UNIT TAB PO SCH (10:48)
[2021-01-13] MEDS: NOREPINEPHRINE 8 MG/D5W 250 ML 250 ML IV SCH (18:18)
[2021-01-13] MEDS ORDERED: HEPARIN SOD (PORCINE) 1000 UNIT/ML SDV ONE (18:41)
[2021-01-13] MEDS: HEPARIN 25,000 UNIT 1,300 UNIT in DEXTROSE 5% 250ML 250 ML IV SCH (21:45)
[2021-01-14] VITALS (32 sets, daily range): BP systolic 97–128; BP diastolic 48–86
[2021-01-14] MEDS: FENTANYL 2000MCG/NS 250 250 ML IV SCH ×3 (04:08→22:34)
[2021-01-14 04:35] LABS: BASOPHILS % 0.2 % (0.0-1.0); EOSINOPHILS # (AUTO) 0.5 (0.0-0.4); EOSINOPHILS % 3.1 % (0.0-6.0); HEMOGLOBIN 8.2 g/dL (12.0-16.0); LYMPHOCYTES % 6.1 % (18.0-39.1); MEAN CORPUSCULAR HEMOGLOBIN 27.3 pg (28-32); MEAN CORPUSCULAR HGB CONC 31.5 g/dL (31-35); MEAN CORPUSCULAR VOLUME 86.7 fL (81-99); MONOCYTES % 5.7 % (4.4-11.3); NEUTROPHILS # (AUTO) 13.7 (2.1-6.9); NEUTROPHILS % 80.5 % (38.7-80.0); PLATELET COUNT 179 x10e3/uL (140-360); RED CELL DISTRIBUTION WIDTH 15.9 % (11.7-14.4)
[2021-01-14] MEDS: MIDAZOLAM HCL 5MG/ML 10ML VIAL 100 ML IV PRN ×4 (04:38→19:25)
[2021-01-14 04:54] LABS: ALBUMIN 2.8 g/dL (3.5-5.0); ALBUMIN/GLOBULIN RATIO 0.9 (0.8-2.0); ANION GAP 13.1 mmol/L (8-16); CALCIUM 9.9 mg/dL (8.4-10.2); CREATININE, SERUM 2.19 mg/dL (0.57-1.11)
[2021-01-14 04:55] LABS: POTASSIUM 5.1 mmol/L (3.5-5.1)
[2021-01-14] MEDS: VANCOMYCIN 250MG/5ML ORAL SOLN PO SCH ×3 (05:32→18:43)
[2021-01-14 08:45] LABS: ABG PCO2 51 mmHg (35-45); ABG PH 7.35 (7.35-7.45); ABG PO2 83 mmHg (80-105)
[2021-01-14 08:46] LABS: ABG HCO3 29 mmol/L (22-26); ABG TCO2 30
[2021-01-14] MEDS: ZINC SULFATE 220 MG CAP PO SCH (09:47)
[2021-01-14] MEDS: CHOLECALCIFEROL 1,000 UNIT TAB PO SCH (09:47)
[2021-01-14] MEDS: KCL 20 MEQ PACKET/ ORAL SOLN NG SCH (09:47)
[2021-01-14] MEDS: ASCORBIC ACID 500 MG TAB PO SCH ×2 (09:47→18:42)
[2021-01-14] MEDS: NOREPINEPHRINE 8 MG/D5W 250 ML 250 ML IV SCH (18:00)
[2021-01-14] MEDS: ACETAMINOPHEN 325 MG TAB PO PRN (20:55)
[2021-01-14] MEDS: HEPARIN 25,000 UNIT 1,300 UNIT in DEXTROSE 5% 250ML 250 ML IV SCH (23:35)
[2021-01-14] MEDS ORDERED: HEPARIN SOD (PORCINE) 5,000 UNIT/ML VIAL ONE (23:56)
[2021-01-15] VITALS (27 sets, daily range): BP systolic 91–147; BP diastolic 46–83
[2021-01-15] MEDS: VANCOMYCIN 250MG/5ML ORAL SOLN PO SCH ×4 (00:10→18:17)
[2021-01-15] MEDS: MIDAZOLAM HCL 5MG/ML 10ML VIAL 100 ML IV PRN ×4 (00:26→19:16)
[2021-01-15] MEDS: FENTANYL 2000MCG/NS 250 250 ML IV SCH ×3 (06:03→19:15)
[2021-01-15 06:09] LABS: BASOPHILS # (AUTO) 0.1 (0.0-0.1); BASOPHILS % 0.6 % (0.0-1.0); EOSINOPHILS # (AUTO) 0.6 (0.0-0.4); EOSINOPHILS % 3.1 % (0.0-6.0); HEMATOCRIT 26.8 % (34.2-44.1); HEMOGLOBIN 8.2 g/dL (12.0-16.0); LYMPHOCYTES # (AUTO) 0.6 (1.0-3.2); LYMPHOCYTES % 3.4 % (18.0-39.1); MEAN CORPUSCULAR HEMOGLOBIN 27.2 pg (28-32); MEAN CORPUSCULAR HGB CONC 30.6 g/dL (31-35); MEAN CORPUSCULAR VOLUME 88.7 fL (81-99); MONOCYTES # (AUTO) 1.2 (0.2-0.8); MONOCYTES % 6.1 % (4.4-11.3); NEUTROPHILS # (AUTO) 15.2 (2.1-6.9); NEUTROPHILS % 80.4 % (38.7-80.0); PLATELET COUNT 188 x10e3/uL (140-360); RED BLOOD COUNT 3.02 x10e6/uL (3.6-5.1); RED CELL DISTRIBUTION WIDTH 15.7 % (11.7-14.4)
[2021-01-15 06:50] LABS: ALBUMIN 2.7 g/dL (3.5-5.0); ALBUMIN/GLOBULIN RATIO 0.7 (0.8-2.0); ANION GAP 13.5 mmol/L (8-16); CREATININE, SERUM 1.48 mg/dL (0.57-1.11); POTASSIUM 4.5 mmol/L (3.5-5.1)
[2021-01-15 07:55] LABS: ABG PCO2 53 mmHg (35-45); ABG PH 7.35 (7.35-7.45); ABG PO2 65 mmHg (80-105)
[2021-01-15 07:56] LABS: ABG HCO3 29 mmol/L (22-26); ABG TCO2 31
[2021-01-15] MEDS: HEPARIN 25,000 UNIT 1,300 UNIT in DEXTROSE 5% 250ML 250 ML IV SCH ×2 (08:22→23:49)
[2021-01-15] MEDS ORDERED: ZINC SULFATE 50 MG CAP ONE (08:50)
[2021-01-15] MEDS: CHOLECALCIFEROL 1,000 UNIT TAB PO SCH (09:00)
[2021-01-15] MEDS: KCL 20 MEQ PACKET/ ORAL SOLN NG SCH (09:00)
[2021-01-15] MEDS: ZINC SULFATE 50 MG CAP PO SCH (09:00)
[2021-01-15] MEDS: ASCORBIC ACID 500 MG TAB PO SCH ×2 (09:00→17:54)
[2021-01-15] MEDS: ACETAMINOPHEN 325 MG TAB PO PRN (13:43)
[2021-01-15] MEDS: NOREPINEPHRINE 8 MG/D5W 250 ML 250 ML IV SCH (18:24)
[2021-01-16] VITALS (27 sets, daily range): BP systolic 91–126; BP diastolic 46–58
[2021-01-16] MEDS: VANCOMYCIN 250MG/5ML ORAL SOLN PO SCH ×5 (00:04→23:15)
[2021-01-16] MEDS: MIDAZOLAM HCL 5MG/ML 10ML VIAL 100 ML IV PRN ×5 (02:16→22:15)
[2021-01-16] MEDS: FENTANYL 2000MCG/NS 250 250 ML IV SCH ×4 (03:09→23:23)
[2021-01-16 06:36] LABS: BASOPHILS # (AUTO) 0.1 (0.0-0.1); BASOPHILS % 0.3 % (0.0-1.0); EOSINOPHILS # (AUTO) 0.7 (0.0-0.4); EOSINOPHILS % 4.4 % (0.0-6.0); HEMATOCRIT 27.2 % (34.2-44.1); HEMOGLOBIN 8.4 g/dL (12.0-16.0); LYMPHOCYTES # (AUTO) 0.4 (1.0-3.2); LYMPHOCYTES % 2.7 % (18.0-39.1); MEAN CORPUSCULAR HEMOGLOBIN 27.3 pg (28-32); MEAN CORPUSCULAR HGB CONC 30.9 g/dL (31-35); MEAN CORPUSCULAR VOLUME 88.3 fL (81-99); MONOCYTES # (AUTO) 0.7 (0.2-0.8); MONOCYTES % 4.4 % (4.4-11.3); NEUTROPHILS # (AUTO) 13.1 (2.1-6.9); PLATELET COUNT 191 x10e3/uL (140-360); RED BLOOD COUNT 3.08 x10e6/uL (3.6-5.1); RED CELL DISTRIBUTION WIDTH 15.8 % (11.7-14.4)
[2021-01-16 07:10] LABS: ALBUMIN 2.5 g/dL (3.5-5.0); ALBUMIN/GLOBULIN RATIO 0.6 (0.8-2.0); CALCIUM 10.4 mg/dL (8.4-10.2); CREATININE, SERUM 2.12 mg/dL (0.57-1.11)
[2021-01-16 08:24] LABS: ABG HCO3 26 mmol/L (22-26); ABG PCO2 47 mmHg (35-45); ABG PH 7.35 (7.35-7.45); ABG PO2 56 mmHg (80-105); ABG TCO2 27
[2021-01-16] MEDS: KCL 20 MEQ PACKET/ ORAL SOLN NG SCH (09:00)
[2021-01-16] MEDS: ASCORBIC ACID 500 MG TAB PO SCH ×2 (09:36→17:41)
[2021-01-16] MEDS: ZINC SULFATE 50 MG CAP PO SCH (09:36)
[2021-01-16] MEDS: CHOLECALCIFEROL 1,000 UNIT TAB PO SCH (09:36)
[2021-01-16] MEDS: ROCURONIUM 1250MG/NS 250 250 ML IV SCH (10:06)
[2021-01-16] MEDS ORDERED: VECURONIUM BROMIDE FOR INJ 20 MG VIAL IV ONE (10:30)
[2021-01-16 11:43] LABS: ALBUMIN 2.5 g/dL (3.5-5.0); ALBUMIN/GLOBULIN RATIO 0.6 (0.8-2.0); ANION GAP 16.3 mmol/L (8-16); CALCIUM 10.4 mg/dL (8.4-10.2); CREATININE, SERUM 2.05 mg/dL (0.57-1.11)
[2021-01-16 11:51] LABS: COLOR,URINE YELLOW (YELLOW)
[2021-01-16 11:52] LABS: CLARITY,URINE CLOUDY (CLEAR); KETONES,URINE NEGATIVE (NEGATIVE); LEUKOCYTE ESTERASE ,URINE LARGE (NEGATIVE); NITRITE,URINE NEGATIVE (NEGATIVE); POTASSIUM 6.3 mmol/L (3.5-5.1); PROTEIN,URINE DIPSTICK 2+ (NEGATIVE); URINE UROBILINOGEN 0.2 mg/dL (0.2 - 1)
[2021-01-16 12:26] LABS: RBC,URINE >50 /HPF (0-5); WBC,URINE (MAN) >50 /HPF (0-5)
[2021-01-16 12:27] LABS: AMORPHOUS SEDIMENT,URINE MODERATE (FEW); BACTERIA,URINE MODERATE /HPF; EPITHELIAL CELLS,URINE FEW /LPF
[2021-01-16] MEDS ORDERED: SODIUM CHLORIDE 0.9% 1000ML 2,000 ML IV PRN (13:15)
[2021-01-16] MEDS ORDERED: SODIUM CHLORIDE 0.9% 250ML 500 ML IV PRN (13:15)
[2021-01-16] MEDS ORDERED: HEPARIN SOD (PORCINE) 1000 UNIT/ML SDV IV PRN (13:15)
[2021-01-16] MEDS ORDERED: ALBUMIN 25% 12.5GM 0.25 GM/ML BTL IV PRN (13:15)
[2021-01-16] MEDS: NOREPINEPHRINE 8 MG/D5W 250 ML 250 ML IV SCH (13:45)
[2021-01-16 14:08] LABS: BASOPHILS # (AUTO) 0.1 (0.0-0.1); BASOPHILS % 0.5 % (0.0-1.0); EOSINOPHILS # (AUTO) 0.5 (0.0-0.4); EOSINOPHILS % 3.1 % (0.0-6.0); HEMATOCRIT 27.2 % (34.2-44.1); HEMOGLOBIN 8.5 g/dL (12.0-16.0); LYMPHOCYTES # (AUTO) 0.3 (1.0-3.2); LYMPHOCYTES % 1.7 % (18.0-39.1); MEAN CORPUSCULAR HEMOGLOBIN 27.7 pg (28-32); MEAN CORPUSCULAR HGB CONC 31.3 g/dL (31-35); MEAN CORPUSCULAR VOLUME 88.6 fL (81-99); MONOCYTES # (AUTO) 0.8 (0.2-0.8); MONOCYTES % 4.8 % (4.4-11.3); NEUTROPHILS % 87.1 % (38.7-80.0); PLATELET COUNT 206 x10e3/uL (140-360); RED BLOOD COUNT 3.07 x10e6/uL (3.6-5.1); RED CELL DISTRIBUTION WIDTH 15.9 % (11.7-14.4)
[2021-01-16 17:34] LABS: BAND NEUTROPHILS % (MANUAL) 7 %; EOSINOPHILS % (MANUAL) 3 % (0-7); MONOCYTES % (MANUAL) 2 % (3.4-9.0); MYELOCYTES % (MANUAL) 1 % (0-0); NEUTROPHILS % (MANUAL) 87 % (40-74); NUCLEATED RED BLOOD CELLS 1
[2021-01-16 17:35] LABS: PLATELET ESTIMATE ADEQUATE; PLATELET MORPHOLOGY COMMENT NORMAL; POLYCHROMASIA SL
[2021-01-16] MEDS: HEPARIN 25,000 UNIT 1,300 UNIT in DEXTROSE 5% 250ML 250 ML IV SCH (21:31)
[2021-01-17] VITALS (26 sets, daily range): BP systolic 83–136; BP diastolic 46–57
[2021-01-17] MEDS: ACETAMINOPHEN 325 MG TAB PO PRN (03:59)
[2021-01-17] MEDS: VANCOMYCIN 250MG/5ML ORAL SOLN PO SCH ×3 (06:00→12:13)
[2021-01-17] MEDS: FENTANYL 2000MCG/NS 250 250 ML IV SCH ×3 (06:01→13:12)
[2021-01-17] MEDS: NOREPINEPHRINE 8 MG/D5W 250 ML 250 ML IV SCH (06:17)
[2021-01-17 08:42] LABS: ABG HCO3 28 mmol/L (22-26); ABG PCO2 64 mmHg (35-45); ABG PH 7.24 (7.35-7.45); ABG PO2 74 mmHg (80-105); ABG TCO2 29
[2021-01-17] MEDS: ZINC SULFATE 50 MG CAP PO SCH (08:52)
[2021-01-17] MEDS: ASCORBIC ACID 500 MG TAB PO SCH ×2 (08:53→17:28)
[2021-01-17] MEDS: ROCURONIUM 1250MG/NS 250 250 ML IV SCH (08:54)
[2021-01-17 10:20] LABS: BASOPHILS # (AUTO) 0.1 (0.0-0.1); BASOPHILS % 0.4 % (0.0-1.0); EOSINOPHILS # (AUTO) 0.4 (0.0-0.4); EOSINOPHILS % 1.7 % (0.0-6.0); HEMATOCRIT 26.3 % (34.2-44.1); LYMPHOCYTES # (AUTO) 0.5 (1.0-3.2); MEAN CORPUSCULAR HEMOGLOBIN 27.3 pg (28-32); MEAN CORPUSCULAR HGB CONC 30.4 g/dL (31-35); MEAN CORPUSCULAR VOLUME 89.8 fL (81-99); MONOCYTES # (AUTO) 1.3 (0.2-0.8); MONOCYTES % 5.7 % (4.4-11.3); NEUTROPHILS # (AUTO) 19.9 (2.1-6.9); NEUTROPHILS % 86.8 % (38.7-80.0); PLATELET COUNT 191 x10e3/uL (140-360); RED BLOOD COUNT 2.93 x10e6/uL (3.6-5.1); RED CELL DISTRIBUTION WIDTH 15.8 % (11.7-14.4)
[2021-01-17 10:24] LABS: ALBUMIN 1.8 g/dL (3.5-5.0); ALBUMIN/GLOBULIN RATIO 0.5 (0.8-2.0); ANION GAP 13.5 mmol/L (8-16); CREATININE, SERUM 1.64 mg/dL (0.57-1.11)
[2021-01-17 10:26] LABS: CALCIUM 8.4 mg/dL (8.4-10.2); POTASSIUM 4.5 mmol/L (3.5-5.1)
[2021-01-17 11:21] LABS: BAND NEUTROPHILS % (MANUAL) 8 %; LYMPHOCYTES % (MANUAL) 1 % (19-48); MONOCYTES % (MANUAL) 3 % (3.4-9.0); NEUTROPHILS % (MANUAL) 87 % (40-74); NUCLEATED RED BLOOD CELLS 1
[2021-01-17 11:22] LABS: PLATELET ESTIMATE ADEQUATE
[2021-01-17 11:23] LABS: PLATELET MORPHOLOGY COMMENT FEW GIANT; RBC MORPHOLOGY COMMENT NORMAL
[2021-01-17] MEDS: MIDAZOLAM HCL 5MG/ML 10ML VIAL 100 ML IV PRN ×2 (13:12→19:11)
[2021-01-17 13:55] LABS: ABG HCO3 28 mmol/L (22-26); ABG PCO2 65 mmHg (35-45); ABG PH 7.24 (7.35-7.45); ABG PO2 75 mmHg (80-105)
[2021-01-17 13:56] LABS: ABG TCO2 30
[2021-01-17] MEDS: HEPARIN 25,000 UNIT 1,300 UNIT in DEXTROSE 5% 250ML 250 ML IV SCH (18:23)
[2021-01-18] VITALS (25 sets, daily range): BP systolic 88–143; BP diastolic 47–83
[2021-01-18] MEDS: FENTANYL 2000MCG/NS 250 250 ML IV SCH ×4 (02:46→23:58)
[2021-01-18] MEDS: MIDAZOLAM HCL 5MG/ML 10ML VIAL 100 ML IV PRN ×5 (05:20→21:45)
[2021-01-18 05:30] LABS: HEMATOCRIT 25.1 % (34.2-44.1); HEMOGLOBIN 7.7 g/dL (12.0-16.0); MEAN CORPUSCULAR HGB CONC 30.7 g/dL (31-35); MEAN CORPUSCULAR VOLUME 88.1 fL (81-99); RED BLOOD COUNT 2.85 x10e6/uL (3.6-5.1); RED CELL DISTRIBUTION WIDTH 15.9 % (11.7-14.4)
[2021-01-18 05:31] LABS: BASOPHILS # (AUTO) 0.1 (0.0-0.1); BASOPHILS % 0.4 % (0.0-1.0); EOSINOPHILS # (AUTO) 0.1 (0.0-0.4); EOSINOPHILS % 0.5 % (0.0-6.0); LYMPHOCYTES # (AUTO) 0.6 (1.0-3.2); LYMPHOCYTES % 2.6 % (18.0-39.1); MONOCYTES # (AUTO) 1.1 (0.2-0.8); MONOCYTES % 4.7 % (4.4-11.3); NEUTROPHILS # (AUTO) 20.1 (2.1-6.9); NEUTROPHILS % 84.8 % (38.7-80.0); PLATELET COUNT 240 x10e3/uL (140-360)
[2021-01-18 06:02] LABS: ALBUMIN 1.9 g/dL (3.5-5.0); ALBUMIN/GLOBULIN RATIO 0.4 (0.8-2.0); ANION GAP 17.2 mmol/L (8-16); CALCIUM 10.2 mg/dL (8.4-10.2); CREATININE, SERUM 2.62 mg/dL (0.57-1.11); POTASSIUM 5.2 mmol/L (3.5-5.1)
[2021-01-18] MEDS: ZINC SULFATE 50 MG CAP PO SCH (08:16)
[2021-01-18] MEDS: ASCORBIC ACID 500 MG TAB PO SCH ×2 (08:16→17:30)
[2021-01-18 09:51] LABS: ABG HCO3 24 mmol/L (22-26); ABG PCO2 60 mmHg (35-45); ABG PH 7.21 (7.35-7.45); ABG PO2 79 mmHg (80-105); ABG TCO2 26
[2021-01-18] MEDS ORDERED: Vancomycin IV 1 GM in SODIUM CHLORIDE 0.9% 250ML 250 ML IV ONE (10:00)
[2021-01-18 11:48] LABS: ABG PH 7.24 (7.35-7.45)
[2021-01-18 11:49] LABS: ABG HCO3 34 mmol/L (22-26); ABG PCO2 78 mmHg (35-45); ABG PO2 65 mmHg (80-105); ABG TCO2 36
[2021-01-18] MEDS: MICAFUNGIN SODIUM 100 ML IV SCH (12:00)
[2021-01-18] MEDS: MEROPENEM 1 GM in SODIUM CHLORIDE 0.9% 100 ML IV SCH ×2 (17:21→20:52)
[2021-01-18] MEDS: HEPARIN 25,000 UNIT 1,300 UNIT in DEXTROSE 5% 250ML 250 ML IV SCH (17:28)
[2021-01-18] MEDS: ROCURONIUM 1250MG/NS 250 250 ML IV SCH (17:28)
[2021-01-18] MEDS: NOREPINEPHRINE 8 MG/D5W 250 ML 250 ML IV SCH ×2 (17:33→23:01)
[2021-01-18] MEDS: ACETAMINOPHEN 325 MG TAB PO PRN (20:11)
[2021-01-19] VITALS (26 sets, daily range): BP systolic 94–127; BP diastolic 49–66
[2021-01-19] MEDS: MIDAZOLAM HCL 5MG/ML 10ML VIAL 100 ML IV PRN ×5 (02:36→23:37)
[2021-01-19] MEDS: FENTANYL 2000MCG/NS 250 250 ML IV SCH ×3 (06:20→19:05)
[2021-01-19 06:56] LABS: BASOPHILS # (AUTO) 0.1 (0.0-0.1); BASOPHILS % 0.2 % (0.0-1.0); EOSINOPHILS # (AUTO) 0.4 (0.0-0.4); EOSINOPHILS % 1.3 % (0.0-6.0); HEMATOCRIT 25.1 % (34.2-44.1); HEMOGLOBIN 7.9 g/dL (12.0-16.0); LYMPHOCYTES # (AUTO) 1.4 (1.0-3.2); LYMPHOCYTES % 4.3 % (18.0-39.1); MEAN CORPUSCULAR HEMOGLOBIN 27.5 pg (28-32); MEAN CORPUSCULAR HGB CONC 31.5 g/dL (31-35); MEAN CORPUSCULAR VOLUME 87.5 fL (81-99); MONOCYTES # (AUTO) 1.8 (0.2-0.8); MONOCYTES % 5.5 % (4.4-11.3); NEUTROPHILS # (AUTO) 24.9 (2.1-6.9); NEUTROPHILS % 75.9 % (38.7-80.0); PLATELET COUNT 314 x10e3/uL (140-360); RED BLOOD COUNT 2.87 x10e6/uL (3.6-5.1)
[2021-01-19 07:45] LABS: ALBUMIN 1.8 g/dL (3.5-5.0); ALBUMIN/GLOBULIN RATIO 0.4 (0.8-2.0); ANION GAP 17.8 mmol/L (8-16); CALCIUM 10.2 mg/dL (8.4-10.2); POTASSIUM 3.8 mmol/L (3.5-5.1)
[2021-01-19] MEDS: ZINC SULFATE 50 MG CAP PO SCH (08:17)
[2021-01-19] MEDS: ASCORBIC ACID 500 MG TAB PO SCH ×2 (08:17→16:17)
[2021-01-19] MEDS: MEROPENEM 1 GM in SODIUM CHLORIDE 0.9% 100 ML IV SCH ×2 (08:17→20:31)
[2021-01-19] MEDS: ROCURONIUM 1250MG/NS 250 250 ML IV SCH (10:20)
[2021-01-19 10:21] LABS: ABG HCO3 27 mmol/L (22-26); ABG PCO2 62 mmHg (35-45); ABG PH 7.25 (7.35-7.45); ABG PO2 59 mmHg (80-105); ABG TCO2 29
[2021-01-19] MEDS: HEPARIN 25,000 UNIT 1,300 UNIT in DEXTROSE 5% 250ML 250 ML IV SCH (10:46)
[2021-01-19] MEDS: MICAFUNGIN SODIUM 100 ML IV SCH (10:48)
[2021-01-19] MEDS: NOREPINEPHRINE 8 MG/D5W 250 ML 250 ML IV SCH (14:49)
[2021-01-19] MEDS: ONDANSETRON HCL INJ 2MG/ML 2ML 2 MG/ML VIAL IV PRN (20:14)
[2021-01-20] VITALS (24 sets, daily range): BP systolic 89–124; BP diastolic 41–80
[2021-01-20] MEDS: HEPARIN 25,000 UNIT 1,300 UNIT in DEXTROSE 5% 250ML 250 ML IV SCH ×3 (00:09→20:16)
[2021-01-20] MEDS: NOREPINEPHRINE 8 MG/D5W 250 ML 250 ML IV SCH ×2 (01:44→21:30)
[2021-01-20] MEDS: FENTANYL 2000MCG/NS 250 250 ML IV SCH (03:23)
[2021-01-20] MEDS: MIDAZOLAM HCL 5MG/ML 10ML VIAL 100 ML IV PRN ×6 (04:11→23:59)
[2021-01-20] MEDS: ONDANSETRON HCL INJ 2MG/ML 2ML 2 MG/ML VIAL IV PRN ×2 (05:53→23:26)
[2021-01-20 06:06] LABS: BASOPHILS % 0.1 % (0.0-1.0); EOSINOPHILS # (AUTO) 0.7 (0.0-0.4); EOSINOPHILS % 1.9 % (0.0-6.0); HEMATOCRIT 23.8 % (34.2-44.1); HEMOGLOBIN 7.8 g/dL (12.0-16.0); LYMPHOCYTES # (AUTO) 1.5 (1.0-3.2); LYMPHOCYTES % 3.9 % (18.0-39.1); MEAN CORPUSCULAR HEMOGLOBIN 28.9 pg (28-32); MEAN CORPUSCULAR HGB CONC 32.8 g/dL (31-35); MEAN CORPUSCULAR VOLUME 88.1 fL (81-99); MONOCYTES # (AUTO) 2.2 (0.2-0.8); MONOCYTES % 5.9 % (4.4-11.3); NEUTROPHILS # (AUTO) 27.7 (2.1-6.9); NEUTROPHILS % 72.4 % (38.7-80.0); PLATELET COUNT 323 x10e3/uL (140-360)
[2021-01-20 06:19] LABS: ANION GAP 17.1 mmol/L (8-16); CALCIUM 10.7 mg/dL (8.4-10.2); CREATININE, SERUM 2.54 mg/dL (0.57-1.11); PHOSPHORUS 4.2 MG/DL (2.3-4.7); POTASSIUM 4.1 mmol/L (3.5-5.1)
[2021-01-20] MEDS: ZINC SULFATE 50 MG CAP PO SCH (08:09)
[2021-01-20] MEDS: ASCORBIC ACID 500 MG TAB PO SCH ×2 (08:09→16:19)
[2021-01-20] MEDS: MEROPENEM 1 GM in SODIUM CHLORIDE 0.9% 100 ML IV SCH (08:09)
[2021-01-20] MEDS: ROCURONIUM 1250MG/NS 250 250 ML IV SCH (08:38)
[2021-01-20 08:50] LABS: BAND NEUTROPHILS % (MANUAL) 4 %; EOSINOPHILS % (MANUAL) 2 % (0-7); LYMPHOCYTES % (MANUAL) 5 % (19-48); MONOCYTES % (MANUAL) 4 % (3.4-9.0); NEUTROPHILS % (MANUAL) 84 % (40-74); NUCLEATED RED BLOOD CELLS 4; PROMYELOCYTES % (MANUAL) 1 % (0-0)
[2021-01-20 08:51] LABS: PLATELET ESTIMATE ADEQUATE; PLATELET MORPHOLOGY COMMENT FEW GIANT; RBC MORPHOLOGY COMMENT NORMAL
[2021-01-20 09:48] LABS: ABG PCO2 59 mmHg (35-45); ABG PH 7.27 (7.35-7.45)
[2021-01-20 09:49] LABS: ABG HCO3 27 mmol/L (22-26); ABG PO2 96 mmHg (80-105); ABG TCO2 29
[2021-01-20] MEDS ORDERED: CITRATE OF MAGNESIA 300ML BOTTLE PO ONE (10:00)
[2021-01-20] MEDS: METOCLOPRAMIDE HCL 10 MG/2ML VIAL IV SCH ×2 (11:30→17:37)
[2021-01-20] MEDS: CEFEPIME 1 GM in SODIUM CHLORIDE 0.9% 50ML 50 ML IV SCH (12:26)
[2021-01-20] MEDS: FENTANYL 2000MCG/NS 250 250 ML IV PRN (23:59)
[2021-01-21] VITALS (25 sets, daily range): BP systolic 86–138; BP diastolic 40–63
[2021-01-21] MEDS: METOCLOPRAMIDE HCL 10 MG/2ML VIAL IV SCH ×3 (02:33→18:00)
[2021-01-21] MEDS: NOREPINEPHRINE 8 MG/D5W 250 ML 250 ML IV SCH (04:02)
[2021-01-21] MEDS: HEPARIN 25,000 UNIT 1,300 UNIT in DEXTROSE 5% 250ML 250 ML IV SCH ×2 (04:31→19:53)
[2021-01-21] MEDS: MIDAZOLAM HCL 5MG/ML 10ML VIAL 100 ML IV PRN ×4 (04:58→20:31)
[2021-01-21] MEDS ORDERED: HEPARIN 25,000 UNIT DRIP IV ONE ×2 (06:32)
[2021-01-21] MEDS: FENTANYL 2000MCG/NS 250 250 ML IV PRN ×3 (06:32→20:30)
[2021-01-21 06:50] LABS: BASOPHILS # (AUTO) 0.1 (0.0-0.1); BASOPHILS % 0.2 % (0.0-1.0); EOSINOPHILS # (AUTO) 1.9 (0.0-0.4); HEMATOCRIT 24.4 % (34.2-44.1); HEMOGLOBIN 7.7 g/dL (12.0-16.0); LYMPHOCYTES # (AUTO) 1.3 (1.0-3.2); LYMPHOCYTES % 2.7 % (18.0-39.1); MEAN CORPUSCULAR HEMOGLOBIN 27.3 pg (28-32); MEAN CORPUSCULAR HGB CONC 31.6 g/dL (31-35); MEAN CORPUSCULAR VOLUME 86.5 fL (81-99); MONOCYTES % 6.3 % (4.4-11.3); NEUTROPHILS # (AUTO) 28.6 (2.1-6.9); NEUTROPHILS % 61.2 % (38.7-80.0); PLATELET COUNT 267 x10e3/uL (140-360); RED BLOOD COUNT 2.82 x10e6/uL (3.6-5.1); RED CELL DISTRIBUTION WIDTH 16.5 % (11.7-14.4)
[2021-01-21 07:08] LABS: ALBUMIN 1.5 g/dL (3.5-5.0); ALBUMIN/GLOBULIN RATIO 0.3 (0.8-2.0); ANION GAP 17.8 mmol/L (8-16); CALCIUM 10.3 mg/dL (8.4-10.2); CREATININE, SERUM 2.62 mg/dL (0.57-1.11); POTASSIUM 3.8 mmol/L (3.5-5.1)
[2021-01-21] MEDS: ROCURONIUM 1250MG/NS 250 250 ML IV SCH (08:01)
[2021-01-21] MEDS: DOCUSATE SODIUM LIQD 100 MG/10 ML UDC NG SCH (08:02)
[2021-01-21] MEDS: ASCORBIC ACID 500 MG TAB PO SCH ×2 (08:02→17:00)
[2021-01-21] MEDS: ZINC SULFATE 50 MG CAP PO SCH (08:02)
[2021-01-21 09:49] LABS: ABG HCO3 24 mmol/L (22-26); ABG PCO2 56 mmHg (35-45); ABG PH 7.24 (7.35-7.45); ABG PO2 78 mmHg (80-105); ABG TCO2 26
[2021-01-21 12:34] LABS: BAND NEUTROPHILS % (MANUAL) 2 %; EOSINOPHILS % (MANUAL) 2 % (0-7); LYMPHOCYTES % (MANUAL) 8 % (19-48); METAMYELOCYTES % (MANUAL) 2 % (0-0); MONOCYTES % (MANUAL) 5 % (3.4-9.0); MYELOCYTES % (MANUAL) 6 % (0-0); NEUTROPHILS % (MANUAL) 74 % (40-74); NUCLEATED RED BLOOD CELLS 1; PLATELET ESTIMATE ADEQUATE; PLATELET MORPHOLOGY COMMENT FEW LARGE; PROMYELOCYTES % (MANUAL) 1 % (0-0); RBC MORPHOLOGY COMMENT NORMAL
[2021-01-21] MEDS: CEFEPIME 1 GM in SODIUM CHLORIDE 0.9% 50ML 50 ML IV SCH (14:42)
[2021-01-21] MEDS: METRONIDAZOLE 500MG/NS 100ML 100 ML IV SCH ×2 (14:53→23:34)
[2021-01-21] MEDS: VANCOMYCIN 250MG/5ML ORAL SOLN PO SCH ×3 (14:53→23:42)
[2021-01-21] MEDS: ONDANSETRON HCL INJ 2MG/ML 2ML 2 MG/ML VIAL IV PRN (23:34)
[2021-01-22] VITALS (29 sets, daily range): BP systolic 83–126; BP diastolic 44–70
[2021-01-22] MEDS: METOCLOPRAMIDE HCL 10 MG/2ML VIAL IV SCH ×3 (01:10→18:07)
[2021-01-22] MEDS: MIDAZOLAM HCL 5MG/ML 10ML VIAL 100 ML IV PRN ×4 (01:50→15:54)
[2021-01-22] MEDS: HEPARIN 25,000 UNIT 1,300 UNIT in DEXTROSE 5% 250ML 250 ML IV SCH (02:31)
[2021-01-22] MEDS: FENTANYL 2000MCG/NS 250 250 ML IV PRN (03:42)
[2021-01-22] MEDS: VANCOMYCIN 250MG/5ML ORAL SOLN PO SCH ×3 (05:03→18:07)
[2021-01-22] MEDS ORDERED: HEPARIN 25,000 UNIT DRIP IV ONE (05:55)
[2021-01-22 06:32] LABS: BASOPHILS # (AUTO) 0.1 (0.0-0.1); BASOPHILS % 0.2 % (0.0-1.0); EOSINOPHILS # (AUTO) 1.3 (0.0-0.4); EOSINOPHILS % 2.2 % (0.0-6.0); HEMOGLOBIN 7.7 g/dL (12.0-16.0); LYMPHOCYTES # (AUTO) 2.2 (1.0-3.2); LYMPHOCYTES % 3.7 % (18.0-39.1); MEAN CORPUSCULAR HEMOGLOBIN 29.7 pg (28-32); MEAN CORPUSCULAR HGB CONC 33.8 g/dL (31-35); MONOCYTES # (AUTO) 3.2 (0.2-0.8); MONOCYTES % 5.4 % (4.4-11.3); NEUTROPHILS # (AUTO) 34.5 (2.1-6.9); NEUTROPHILS % 58.8 % (38.7-80.0); PLATELET COUNT 332 x10e3/uL (140-360); RED BLOOD COUNT 2.59 x10e6/uL (3.6-5.1); RED CELL DISTRIBUTION WIDTH 18.2 % (11.7-14.4)
[2021-01-22 06:38] LABS: HEMATOCRIT 22.8 % (34.2-44.1)
[2021-01-22 06:50] LABS: ALBUMIN 1.5 g/dL (3.5-5.0); ALBUMIN/GLOBULIN RATIO 0.3 (0.8-2.0); ANION GAP 16.9 mmol/L (8-16); CALCIUM 10.3 mg/dL (8.4-10.2); CREATININE, SERUM 2.84 mg/dL (0.57-1.11); POTASSIUM 3.9 mmol/L (3.5-5.1)
[2021-01-22 07:50] LABS: BAND NEUTROPHILS % (MANUAL) 1 %; EOSINOPHILS % (MANUAL) 2 % (0-7); LYMPHOCYTES % (MANUAL) 4 % (19-48); METAMYELOCYTES % (MANUAL) 2 % (0-0); MONOCYTES % (MANUAL) 5 % (3.4-9.0); MYELOCYTES % (MANUAL) 7 % (0-0); NEUTROPHILS % (MANUAL) 77 % (40-74); NUCLEATED RED BLOOD CELLS 5; PROMYELOCYTES % (MANUAL) 2 % (0-0)
[2021-01-22 07:51] LABS: PLATELET ESTIMATE ADEQUATE; PLATELET MORPHOLOGY COMMENT FEW LARGE; RBC MORPHOLOGY COMMENT NORMAL
[2021-01-22] MEDS: ASCORBIC ACID 500 MG TAB PO SCH ×2 (07:51→18:07)
[2021-01-22] MEDS: ZINC SULFATE 50 MG CAP PO SCH (07:51)
[2021-01-22] MEDS: DOCUSATE SODIUM LIQD 100 MG/10 ML UDC NG SCH (07:51)
[2021-01-22] MEDS: ROCURONIUM 1250MG/NS 250 250 ML IV SCH (07:51)
[2021-01-22] MEDS: METRONIDAZOLE 500MG/NS 100ML 100 ML IV SCH ×2 (07:52→18:07)
[2021-01-22] MEDS: NOREPINEPHRINE 8 MG/D5W 250 ML 250 ML IV SCH ×3 (08:13→17:59)
[2021-01-22 08:22] LABS: ABG HCO3 23 mmol/L (22-26); ABG PCO2 67 mmHg (35-45); ABG PH 7.14 (7.35-7.45); ABG PO2 71 mmHg (80-105)
[2021-01-22 08:23] LABS: ABG TCO2 25
[2021-01-22] MEDS ORDERED: MICAFUNGIN SODIUM 100 ML IV SCH (09:00)
[2021-01-22] MEDS ORDERED: ALBUMIN 25% 25GM 100ML 0.25 GM/ML BTL IV STA (11:42)
[2021-01-22] MEDS ORDERED: VASOPRESSIN 60 UNIT in DEXTROSE 5% 50ML 57 ML IV PRN (11:45)
[2021-01-22] MEDS ORDERED: ALBUMIN 25% 25GM 100ML 200 ML IV ONE (12:30)
[2021-01-22] MEDS: CEFEPIME 1 GM in SODIUM CHLORIDE 0.9% 50ML 50 ML IV SCH (12:46)
[2021-01-22] MEDS: ACETAMINOPHEN 325 MG TAB PO PRN (12:46)
[2021-01-22] MEDS ORDERED: VASOPRESSIN INJ 20 UNIT/ML VIAL ONE ×2 (22:16→22:18)
[2021-01-22] MEDS ORDERED: DEXTROSE 5% 100ML 100 ML IV ONE (22:17)
[2021-01-23] VITALS (25 sets, daily range): BP systolic 68–119; BP diastolic 40–60
[2021-01-23] MEDS: METRONIDAZOLE 500MG/NS 100ML 100 ML IV SCH ×3 (00:17→16:08)
[2021-01-23] MEDS: VANCOMYCIN 250MG/5ML ORAL SOLN PO SCH ×4 (00:17→17:25)
[2021-01-23] MEDS: METOCLOPRAMIDE HCL 10 MG/2ML VIAL IV SCH ×3 (03:14→17:24)
[2021-01-23 06:03] LABS: BASOPHILS # (AUTO) 0.1 (0.0-0.1); BASOPHILS % 0.1 % (0.0-1.0); EOSINOPHILS # (AUTO) 0.3 (0.0-0.4); EOSINOPHILS % 0.5 % (0.0-6.0); HEMATOCRIT 23.6 % (34.2-44.1); HEMOGLOBIN 7.1 g/dL (12.0-16.0); LYMPHOCYTES # (AUTO) 3.2 (1.0-3.2); LYMPHOCYTES % 4.6 % (18.0-39.1); MEAN CORPUSCULAR HEMOGLOBIN 27.6 pg (28-32); MEAN CORPUSCULAR HGB CONC 30.1 g/dL (31-35); MEAN CORPUSCULAR VOLUME 91.8 fL (81-99); MONOCYTES # (AUTO) 2.4 (0.2-0.8); MONOCYTES % 3.5 % (4.4-11.3); NEUTROPHILS # (AUTO) 33.4 (2.1-6.9); NEUTROPHILS % 48.5 % (38.7-80.0); PLATELET COUNT 223 x10e3/uL (140-360); RED BLOOD COUNT 2.57 x10e6/uL (3.6-5.1); RED CELL DISTRIBUTION WIDTH 17.9 % (11.7-14.4)
[2021-01-23] MEDS ORDERED: SODIUM BICARBONATE 8.4% INJ 50 ML SYR IV STA ×2 (06:06→17:04)
[2021-01-23 06:07] LABS: ABG PCO2 58 mmHg (35-45); ABG PH 6.96 (7.35-7.45); ABG PO2 101 mmHg (80-105); ABG TCO2 15
[2021-01-23 06:08] LABS: ABG HCO3 13 mmol/L (22-26)
[2021-01-23 06:36] LABS: ALBUMIN 2.5 g/dL (3.5-5.0); ALBUMIN/GLOBULIN RATIO 0.6 (0.8-2.0); ANION GAP 25.5 mmol/L (8-16); CALCIUM 9.5 mg/dL (8.4-10.2); CREATININE, SERUM 3.2 mg/dL (0.57-1.11)
[2021-01-23] MEDS ORDERED: DEXTROSE 5% IV SCH ×2 (07:00)
[2021-01-23] MEDS ORDERED: SODIUM BICARBONATE 8.4% IV SCH ×2 (07:00)
[2021-01-23 07:01] LABS: POTASSIUM 5.5 mmol/L (3.5-5.1)
[2021-01-23 08:12] LABS: BAND NEUTROPHILS % (MANUAL) 5 %; LYMPHOCYTES % (MANUAL) 4 % (19-48); METAMYELOCYTES % (MANUAL) 7 % (0-0); MONOCYTES % (MANUAL) 6 % (3.4-9.0); MYELOCYTES % (MANUAL) 15 % (0-0); NEUTROPHILS % (MANUAL) 56 % (40-74); NUCLEATED RED BLOOD CELLS 3; PLATELET ESTIMATE ADEQUATE; PLATELET MORPHOLOGY COMMENT FEW GIANT; PROMYELOCYTES % (MANUAL) 7 % (0-0); RBC MORPHOLOGY COMMENT NORMAL
[2021-01-23 08:13] LABS: HYPOCHROMASIA SLIGHT
[2021-01-23] MEDS ORDERED: HEPARIN 25,000 UNIT 1,300 UNIT in DEXTROSE 5% 250ML 250 ML IV SCH (08:15)
[2021-01-23] MEDS: LINEZOLID 600 MG/D5W 300ML 300 ML IV SCH ×2 (09:00→18:22)
[2021-01-23] MEDS ORDERED: SODIUM BICARBONATE 8.4% INJ 50 ML SYR IV ONE (09:00)
[2021-01-23 09:06] LABS: ABG HCO3 17 mmol/L (22-26); ABG PCO2 60 mmHg (35-45); ABG PH 7.05 (7.35-7.45); ABG PO2 84 mmHg (80-105); ABG TCO2 18
[2021-01-23] MEDS: ASCORBIC ACID 500 MG TAB PO SCH ×2 (09:07→16:08)
[2021-01-23] MEDS: DOCUSATE SODIUM LIQD 100 MG/10 ML UDC NG SCH (09:07)
[2021-01-23] MEDS: ZINC SULFATE 50 MG CAP PO SCH (09:07)
[2021-01-23] MEDS: ROCURONIUM 1250MG/NS 250 250 ML IV SCH (09:30)
[2021-01-23] MEDS: NOREPINEPHRINE 8 MG/D5W 250 ML 250 ML IV SCH ×3 (09:38→18:00)
[2021-01-23] MEDS ORDERED: SODIUM BICARBONATE 8.4% SYRING 100 ML ONE ×2 (09:53→17:15)
[2021-01-23] MEDS ORDERED: MICAFUNGIN SODIUM 100 ML IV SCH (11:00)
[2021-01-23] MEDS: FENTANYL 2000MCG/NS 250 250 ML IV PRN (12:29)
[2021-01-23] MEDS: MIDAZOLAM HCL 5MG/ML 10ML VIAL 100 ML IV PRN ×2 (12:29→17:15)
[2021-01-23] MEDS: CEFEPIME 1 GM in SODIUM CHLORIDE 0.9% 50ML 50 ML IV SCH (12:48)
[2021-01-23] MEDS ORDERED: SOD POLYSTYRENE SULFONATE SUSP 15 GM/60 ML BTL PO ONE (16:00)
[2021-01-23] MEDS ORDERED: DEXTROSE 50% SYRINGE 50 ML IV STA (16:09)
[2021-01-23] MEDS ORDERED: INSULIN REGULAR, HUMAN 100 UNIT/1 ML IV ONE (16:15)
[2021-01-23] MEDS: SODIUM BICARBONATE 8.4% 150 ML in DEXTROSE 5% 1,000 ML IV SCH (18:00)
[2021-01-24] VITALS (7 sets, daily range): BP systolic 34–56; BP diastolic 28–41
[2021-01-24] MEDS: METRONIDAZOLE 500MG/NS 100ML 100 ML IV SCH (03:24)
[2021-01-24] MEDS: VANCOMYCIN 250MG/5ML ORAL SOLN PO SCH ×2 (03:24→05:50)
[2021-01-24] MEDS: METOCLOPRAMIDE HCL 10 MG/2ML VIAL IV SCH (03:25)
[2021-01-24] MEDS: MIDAZOLAM HCL 5MG/ML 10ML VIAL 100 ML IV PRN (04:06)
[2021-01-24] MEDS: SODIUM BICARBONATE 8.4% 150 ML in DEXTROSE 5% 1,000 ML IV SCH (05:49)
[2021-01-24 06:35] LABS: BASOPHILS # (AUTO) 0.2 (0.0-0.1); BASOPHILS % 0.2 % (0.0-1.0); EOSINOPHILS # (AUTO) 0.1 (0.0-0.4); EOSINOPHILS % 0.1 % (0.0-6.0); LYMPHOCYTES # (AUTO) 1.8 (1.0-3.2); LYMPHOCYTES % 2.5 % (18.0-39.1); MEAN CORPUSCULAR HEMOGLOBIN 28.3 pg (28-32); MEAN CORPUSCULAR HGB CONC 28.9 g/dL (31-35); MONOCYTES # (AUTO) 2.7 (0.2-0.8); MONOCYTES % 3.7 % (4.4-11.3); NEUTROPHILS # (AUTO) 37.3 (2.1-6.9); NEUTROPHILS % 51.5 % (38.7-80.0); PLATELET COUNT 132 x10e3/uL (140-360); RED BLOOD COUNT 1.98 x10e6/uL (3.6-5.1); RED CELL DISTRIBUTION WIDTH 18.8 % (11.7-14.4)
[2021-01-24 06:49] LABS: HEMOGLOBIN 5.6 g/dL (12.0-16.0)
[2021-01-24 06:50] LABS: HEMATOCRIT 19.4 % (34.2-44.1)
[2021-01-24 07:05] LABS: ALBUMIN 1.8 g/dL (3.5-5.0); ALBUMIN/GLOBULIN RATIO 0.8 (0.8-2.0); ANION GAP 40.6 mmol/L (8-16); CALCIUM 7.9 mg/dL (8.4-10.2); CREATININE, SERUM 3.69 mg/dL (0.57-1.11)
[2021-01-24 07:33] LABS: POTASSIUM 6.6 mmol/L (3.5-5.1)
[2021-01-24 08:10] LABS: BAND NEUTROPHILS % (MANUAL) 4 %; EOSINOPHILS % (MANUAL) 1 % (0-7); LYMPHOCYTES % (MANUAL) 1 % (19-48); METAMYELOCYTES % (MANUAL) 5 % (0-0); MONOCYTES % (MANUAL) 13 % (3.4-9.0); MYELOCYTES % (MANUAL) 20 % (0-0); NEUTROPHILS % (MANUAL) 54 % (40-74); NUCLEATED RED BLOOD CELLS 6; PLATELET ESTIMATE SLIGHTLY DECREASED; PROMYELOCYTES % (MANUAL) 2 % (0-0)
[2021-01-24 08:11] LABS: PLATELET MORPHOLOGY COMMENT FEW LARGE
[2021-01-24 08:12] LABS: RBC MORPHOLOGY COMMENT NORMAL
[2021-01-24] MEDS ORDERED: EPINEPHRINE HCL SYRINGE ONE (13:25)
[2021-01-24] MEDS ORDERED: SODIUM BICARBONATE 8.4% INJ 50 ML SYR ONE (13:25)
== END 2021-01-24 16:15 | disposition expired | DRG 853 ==
LOC: ER 13:38 → ERHOLD 15:47 → IMCU 01-02 17:43 → COVIDICU 01-07 17:51
PROVIDERS: ADMIT Internal Medicine; ATTEND Internal Medicine
PROC: 5A12012 Performance of Cardiac Output, Single, Manual (ICD-10-PCS; 2020-12-24)
PROC: XW043E5 Introduction of Remdesivir Anti-infective into Central Vein, Percutaneous Approach, New Technology Group 5 (ICD-10-PCS; 2020-12-28)
PROC: 8E0ZXY6 Isolation (ICD-10-PCS; 2020-12-28)
PROC: XW043E5 Introduction of Remdesivir Anti-infective into Central Vein, Percutaneous Approach, New Technology Group 5 (ICD-10-PCS; 2020-12-28)
PROC: 5A09357 Assistance with Respiratory Ventilation, Less than 24 Consecutive Hours, Continuous Positive Airway Pressure (ICD-10-PCS; 2020-12-29)
PROC: 05HY33Z Insertion of Infusion Device into Upper Vein, Percutaneous Approach (ICD-10-PCS; 2021-01-02)
PROC: 0BH17EZ Insertion of Endotracheal Airway into Trachea, Via Natural or Artificial Opening (ICD-10-PCS; principal; 2021-01-07)
PROC: 5A1955Z Respiratory Ventilation, Greater than 96 Consecutive Hours (ICD-10-PCS; 2021-01-07)
PROC: 03HC3DZ Insertion of Intraluminal Device into Left Radial Artery, Percutaneous Approach (ICD-10-PCS; 2021-01-11)
PROC: 5A1D70Z Performance of Urinary Filtration, Intermittent, Less than 6 Hours Per Day (ICD-10-PCS; 2021-01-12)
PROC: 02HV33Z Insertion of Infusion Device into Superior Vena Cava, Percutaneous Approach (ICD-10-PCS; 2021-01-12)
DX: A41.89 Other specified sepsis (principal); U07.1 COVID-19; J12.82 Pneumonia due to coronavirus disease 2019; R65.21 Severe sepsis with septic shock; J69.0 Pneumonitis due to inhalation of food and vomit; J80 Acute respiratory distress syndrome; J15.9 Unspecified bacterial pneumonia; A04.72 Enterocolitis due to Clostridium difficile, not specified as recurrent; N17.9 Acute kidney failure, unspecified; E66.01 Morbid (severe) obesity due to excess calories; Z68.38 Body mass index [BMI] 38.0-38.9, adult; M19.90 Unspecified osteoarthritis, unspecified site; D64.89 Other specified anemias; I46.8 Cardiac arrest due to other underlying condition; E87.5 Hyperkalemia; Z66 Do not resuscitate
CPT/HCPCS: 36415; 36569; 36600; 71045; 74018; 76770; 80048; 80053; 81001; 82550; 82553; 82805; 82948; 83735; 83880; 84100; 84484; 85014; 85018; 85025; 85610; 85730; 86140; 86704; 86706; 86850; 86900; 87040; 87070; 87186; 87205; 87340; 93005; 93306; 94002; 94003; 94660; 99251; 99284; 99285; J0171; J0330; J0456; J0692; J0696; J1100; J1644; J1650; J1940; J2020; J2150; J2185; J2248; J2250; J2405; J2765; J3370; J3475; J3480; J7030; J7050; J7070; J7121; J7799; P9047; U0002